=== PATIENT | male | born 1980 | race Caucasian/White ===

== ENCOUNTER 2019-04-10 10:54 | Inpatient (IN) ==
[2019-04-10] MEDS ORDERED: NS 1,000 ML IV ONE (11:34)
--- NOTE | 2019-04-10 11:39 | EKG Report ---
Test Performed on : 04/10/2019 11:18:18 AM Test Reason : syncope Blood Pressure : / mmHG Vent. Rate : 094 BPM Atrial Rate : 094 BPM P-R Int : 144 ms QRS Dur : 102 ms QT Int : 358 ms P-R-T Axes : 062 028 055 degrees QTc Int : 447 ms Normal sinus rhythm. Possible Left atrial enlargement Borderline ECG When compared with ECG of 03-MAY-2018 03:34, No significant change was found Unconfirmed Result
[2019-04-10 12:08] LABS: BASO# 0.03 X1000 (0.0-0.2); BASO% 0.2 % (0.0-0.8); EOS# 0.13 X1000 (0.0-0.7); EOS% 0.9 % (0.0-10.0); HEMATOCRIT 42.6 % (42.0-52.0); HEMOGLOBIN 14.6 g/dL (14.0-18.0); IMM GRAN# 0.05 X1000 (0.0-0.04); IMM GRAN% 0.3 % (0.0-0.5); LYMPH# 3.23 X1000 (1.2-3.4); LYMPH% 21.9 % (20.5-51.1); MCHC 34.3 g/dL (33-37); MCV 96.4 FL (81-99); MONO# 1.45 X1000 (0.11-0.59); MONO% 9.8 % (1.7-9.3); NEUT# 9.85 X1000 (1.4-6.5); NEUT% 66.9 % (42.2-75.2); PLT 262 X1000 (130-400); RBC 4.42 XMIL (4.7-6.1); RDW 13.4 % (11.5-14.5); WBC 14.74 X1000 (4.8-10.8)
--- NOTE | 2019-04-10 12:13 | Diag Imaging Result Doc PS360 ---
EXAM: CHEST-1 VIEW HISTORY: syncope TECHNIQUE: Chest single view COMPARISON: 02/15/2019 FINDINGS: The lungs are well expanded. The heart is not enlarged. The vessels are not distended. There are no infiltrates. No effusion identified. IMPRESSION: Negative exam. Electronically signed by Nelson Chung 04/10/2019 12:11 PM
--- NOTE | 2019-04-10 12:15 | Diag Imaging Result Doc PS360 ---
EXAM: CERVICAL SPINE COMPLETE 04/10/2019 HISTORY: syncope, neck pain TECHNIQUE: Cervical spine series with obliques six views COMMENT: There is reversal normal lordotic curvature of the lower cervical spine and there is narrowing of the anterior disc space at the C6-7 level with anterior osteophyte formation. There is also some anterior osteophyte formation at C5-6 and C7-T1. No prevertebral soft tissue swelling is present. There is apparently a somewhat transitional T1 with rudimentary rib on the right. Some uncovertebral arthropathy with encroachment on the intervertebral foramen at the C6-7 levels present on the left. There is no evidence of acute fracture or subluxation. IMPRESSION: Degenerative changes as described. No evidence of acute bony abnormality. Electronically signed by Rhys Ledezma 04/10/2019 12:13 PM
[2019-04-10 12:25] LABS: ALB/GLOB RATIO 1.3; ALBUMIN 4.3 g/dL (3.5-5.0); CALCIUM 8.7 mg/dL (8.8-10.2); MAGNESIUM 2.3 mg/dL (1.5-2.7); POTASSIUM 4.1 mmol/L (3.5-5.1); TOTAL BILIRUBIN 0.43 mg/dL (0.20-1.00); TOTAL PROTEIN 7.6 g/dL (6.3-8.3)
[2019-04-10 12:28] LABS: CREATININE 9.4 mg/dL (0.7-1.2)
[2019-04-10 12:44] LABS: URINE SOURCE CLEAN CATCH
[2019-04-10 12:48] LABS: BILIRUBIN URINE SMALL (NEGATIVE); BLOOD URINE TRACE (NEGATIVE); COLOR YELLOW; GLUCOSE URINE NEGATIVE (NEGATIVE); KETONE URINE NEGATIVE (NEGATIVE); LEUKOCYTES URINE TRACE (NEGATIVE); NITRITE URINE NEGATIVE (NEGATIVE); PH URINE 5.5; PROTEIN URINE 100 mg/dL (NEGATIVE); SP GRAVITY URINE 1.025; TURBIDITY URINE HAZY (CLEAR); UROBILINOGEN URINE 2 mg/dL (NORMAL)
[2019-04-10 13:06] LABS: UR EPITHELIAL CELLS <10 /HPF (<10); URINE BACTERIA NEGATIVE /HPF
[2019-04-10 13:07] LABS: UR AMPHETAMINES QUAL PRESUMPTIVE POSITIVE (NONE DETECT); UR BARBITUATES QUAL NONE DETECTED (NONE DETECT); UR BENZODIAZEPIN QUAL PRESUMPTIVE POSITIVE (NONE DETECT); UR CANNABINOIDS QUAL NONE DETECTED (NONE DETECT); UR COCAINE QUAL NONE DETECTED (NONE DETECT); UR METHADONE QUAL NONE DETECTED (NONE DETECT); UR OPIATES QUAL PRESUMPTIVE POSITIVE (NONE DETECT); UR OXYCODONE QUAL NONE DETECTED (NONE DETECT); UR PCP QUAL NONE DETECTED (NONE DETECT)
[2019-04-10 13:08] LABS: URINE YEAST NONE SEEN
[2019-04-10] MEDS: NORCO-10 PO PRN (16:10)
[2019-04-10] MEDS: NICODERM PATCH TD SCH (16:11)
[2019-04-10] MEDS: NS 1,000 ML IV SCH (17:23)
--- NOTE | 2019-04-10 18:26 | NEPHROLOGY CONSULTATION ---
DATE: 04/10/2019 REASON FOR CONSULTATION: Acute kidney injury. HISTORY OF PRESENT ILLNESS: Mr. Lopez is a 38-year-old white male with a history of hypertension and chronic pain syndrome. He is followed by Dr. Hernandez who prescribes lisinopril for his blood pressure as well as hydrocodone for management of his pain. His chart mentions diazepam, escitalopram, amlodipine as well. He does not mention these to me. He states that he is unemployed because of his neck pain and back pain. He states he has been working out in the yard on the mower and has been able to take his blood pressure medicine. He came to the hospital because he had symptoms of weakness and what he interpreted as near syncope. These symptoms were persistent so he sought attention. His initial evaluation found blood pressure 81/49, heart rate 99. After fluids his blood pressure improved to 126/73. Initial laboratory evaluation found creatinine 9.4. Historically, creatinine 1.2 on February 15 of this year. No voiding symptoms. No swelling, no shortness of breath, or chest discomfort. PAST MEDICAL HISTORY: As above. HOME MEDICATIONS: Reviewed. ALLERGIES: None. SOCIAL HISTORY: He lives with his mother. He continues to smoke. Occasional beer up to 2 a day. FAMILY HISTORY: Otherwise noncontributory. REVIEW OF SYSTEMS: Otherwise noncontributory. PHYSICAL EXAMINATION: No acute distress.Skin: Warm and dry. Eyes: Conjunctivae are pink. Neck: Neck veins are not distended. Heart: Regular. Lungs: Equal. No crackles. Abdomen: Soft, nontender. Bowel sounds present. Extremities: No edema, clubbing or cyanosis. IMPRESSION: Acute kidney injury, likely hemodynamic form of acute kidney injury secondary to poor glomerular autoregulation in the context of volume contraction. His JULIENNE inhibitor has been appropriately withheld and he is receiving normal saline. We will observe his kidney function over the next 24 hours. He will have a renal ultrasound. Check urine electrolytes. cc: MD Kevin Trevino MD
[2019-04-10 20:50] LABS: URINE SOURCE VOIDED
[2019-04-10 20:55] LABS: BILIRUBIN URINE NEGATIVE (NEGATIVE); BLOOD URINE SMALL (NEGATIVE); COLOR YELLOW; GLUCOSE URINE NEGATIVE (NEGATIVE); KETONE URINE NEGATIVE (NEGATIVE); LEUKOCYTES URINE NEGATIVE (NEGATIVE); NITRITE URINE NEGATIVE (NEGATIVE); PH URINE 5.5; PROTEIN URINE 50 mg/dL (NEGATIVE); SP GRAVITY URINE 1.017; TURBIDITY URINE CLEAR (CLEAR); UROBILINOGEN URINE NORMAL (NORMAL)
[2019-04-10 20:56] LABS: UR EPITHELIAL CELLS <10 /HPF (<10); URINE BACTERIA NEGATIVE /HPF; URINE RBC <10 /HPF (<10); URINE WBC <10 /HPF (<10)
[2019-04-10] MEDS: NORVASC PO SCH (21:00)
[2019-04-10] MEDS: VALIUM PO SCH (21:00)
[2019-04-10 21:08] LABS: UR CREAT RANDOM 186.4 mg/dL (14-26); UR PROT RANDOM 44.5 mg/dL
[2019-04-11] MEDS: NS 1,000 ML IV SCH ×4 (01:00→17:15)
[2019-04-11] MEDS: NORCO-10 PO PRN ×2 (07:32→15:52)
[2019-04-11 07:36] LABS: HEMATOCRIT 38.8 % (42.0-52.0); HEMOGLOBIN 13.2 g/dL (14.0-18.0); MCH 33.5 PG (27-31); MCV 98.5 FL (81-99); MPV 9.9 FL (7.4-10.4); RBC 3.94 XMIL (4.7-6.1); RDW 13.3 % (11.5-14.5); WBC 9.62 X1000 (4.8-10.8)
[2019-04-11 08:05] LABS: ALBUMIN 3.8 g/dL (3.5-5.0); CALCIUM 8.2 mg/dL (8.8-10.2); CREATININE 2.6 mg/dL (0.7-1.2); PHOSPHORUS 4.7 mg/dL (2.7-4.5); POTASSIUM 4.3 mmol/L (3.5-5.1)
[2019-04-11] MEDS: LEXAPRO PO SCH (08:24)
[2019-04-11] MEDS: NICODERM PATCH TD SCH (08:24)
[2019-04-11] MEDS: NORVASC PO SCH ×2 (08:24→20:51)
--- NOTE | 2019-04-11 08:34 | Diag Imaging Result Doc PS360 ---
EXAM: US RENAL 2 (RETROPER) COMPLETE 04/11/2019 HISTORY: decreased renal function TECHNIQUE: Renal ultrasound COMMENT: The kidneys are normal in echogenicity. There is no evidence of hydronephrosis. There are no definite masses. The study is somewhat suboptimal due to the patient's body habitus. The urinary bladder is not distended. The right kidney is 13.1 x 6.2 x 6.3 cm the left is 13 x 6.4 x 6.2 cm. IMPRESSION: No evidence of obstructive uropathy. Electronically signed by Rhys Ledezma 04/11/2019 8:31 AM
--- NOTE | 2019-04-11 08:56 | HISTORY AND PHYSICAL ---
HISTORY OF PRESENT ILLNESS: Mr. Lopez who is a 38-year-old white gentleman, a known case of hypertension, attention deficit disorder, chronic degenerative disk disease in the lumbar spine was brought to the emergency room because of severe dizziness and weakness. He was found to have dehydration and his creatinine was extremely elevated, hence he was admitted to the hospital with nephrology opinion and management. Mr. Lopez works too hard and sometimes does not take care of himself. He has is sometimes he does not comply with his medications. He has hypertension for several years. PAST SURGICAL HISTORY: Reveals history of 1 back surgery for lumbar spine degenerative disk disease. SOCIAL HISTORY: He has a smokes. He has used marijuana in the past. No other illegal drugs. He is on chronic narcotic medications by prescription. He drinks only socially. ALLERGIES: He is not allergic to any medication. MEDICINES: Include Norvasc, [place] 10, diazepam, Lexapro, NicoDerm patch. He also was taking lisinopril for hypertension, which we have stopped for the time being. REVIEW OF SYSTEMS: Other than dizziness, it is noncontributory. PHYSICAL EXAMINATION: VITAL SIGNS: Reveal temperature normal, pulse 71 per minute, respiratory rate 18 per minute, blood pressure was 103/48. HEENT: Head normocephalic. Pupils PERRLA. Fundus examination normal. NECK: Supple JVP normal ENT examination unremarkable. There is no evidence of lymphadenopathy, thyroid enlargement, pedal edema, calf tenderness, anemia, cyanosis or clubbing. Pedal pulses well felt. BREAST EXAM: Normal chest, normal inspection. LUNGS: Clear on auscultation. HEART: PMI in the normal position. Heart sounds normal. No murmur, gallop or rub noted. ABDOMEN: Nondistended hernial orifices normal. No guarding, rigidity, free fluid, masses, or organomegaly. Bowel sounds normal. RECTAL: Deferred. MANAGER OPERATIONS: Higher functions normal. Cranial nerves normal. Motor and sensory system examination unremarkable. Deep tendon reflexes normal. Plantars downgoing. Skull and spine examination normal for age. No cerebellar signs or signs of meningeal irritation local motor exam. SKIN: Unremarkable except for dehydration. CLINICAL IMPRESSION: 1. Dehydration. 2. Acute renal failure. 3. History of hypertension. 4. History of chronic narcotic use. 5. Attention deficit disorder. 6. He has degenerative disk disease in the lumbar spine. cc: Kevin Hernandez MD
[2019-04-11] MEDS ORDERED: NORCO-10 PO SCH (09:00)
[2019-04-11] MEDS ORDERED: DULCOLAX PR PRN (09:06)
--- NOTE | 2019-04-11 09:28 | PROGRESS NOTE ---
DATE: 04/11/2019 SUBJECTIVE: Mr. Lopez is feeling somewhat better today. He had a renal ultrasound, which does not show any obstructive uropathy. OBJECTIVE: Vital Signs: Stable. Blood pressure is 115/66. Abdomen: Soft, nontender. Lungs: Clear. LABORATORY DATA: The white count has come down from 14.74 to 9.62, hemoglobin is down to 13.2. Electrolytes are stable. BUN down from 49 to 41, but the creatinine is down from 9.4 to 2.6, which is a significant drop. PLAN: He is getting IV fluids, which we are going to continue, and continue with his current medications. He has severe constipation, which we are working on, and give him a suppository today. cc: Kevin Hernandez MD
--- NOTE | 2019-04-11 09:40 | NEPHROLOGY PROGRESS NOTE ---
DATE: 04/11/2019 SUBJECTIVE: The patient is sitting up on the side of the bed. He is waiting to go down for a renal ultrasound. He had been able to eat overnight. He is making excellent urine. OBJECTIVE: Vital Signs: Temperature 98.1 degrees, pulse 71, respiratory rate 19, blood pressure 121/47. Intake 2.2 L. Output 2.2 L. Physical Examination: General: This is a middle-aged gentleman sitting up on the side of the bed. He is awake and alert. He is in no acute distress. HEENT: Normocephalic, atraumatic. RD. Neck: Supple without JVD. Cardiovascular: Reveals regular rate and rhythm. Pulmonary: He has equal excursion. He has some rhonchi to the right posterior bases. Abdomen: Soft. Positive bowel sounds. : Voiding. Extremities: No clubbing, cyanosis, or edema. Integumentary: Skin is warm and dry. Lab Data: Pending. ASSESSMENT AND PLAN: 1. Acute kidney injury in the setting of impaired autoregulation. Patient has received intravenous fluids overnight. Urine output has improved significantly. He is to go for a renal ultrasound today. If it has no new findings, from a renal perspective, he should be able to be discharged at the discretion of the primary once we have labs back, if he has had any improvement. 2. Hypertension, controlled. Dictated by BLAINE Tinsley for Denny Herrera MD Face to face encounter, data reviewed, discussed with Rashad Sabillon on 04/11/19. I agree with the above assessment and plan of care. cc: MD Kevin Trevino MD [facility]
[2019-04-11] MEDS: VALIUM PO SCH (20:51)
[2019-04-12 07:51] LABS: HEMATOCRIT 39.9 % (42.0-52.0); HEMOGLOBIN 13.5 g/dL (14.0-18.0); MCH 32.9 PG (27-31); MCHC 33.8 g/dL (33-37); MCV 97.3 FL (81-99); MPV 9.8 FL (7.4-10.4); RBC 4.1 XMIL (4.7-6.1); WBC 7.88 X1000 (4.8-10.8)
[2019-04-12 07:59] VITALS: BP 149/81
[2019-04-12] MEDS: NORVASC PO SCH (08:17)
[2019-04-12] MEDS: NICODERM PATCH TD SCH (08:17)
[2019-04-12] MEDS: LEXAPRO PO SCH (08:17)
[2019-04-12] MEDS: NORCO-10 PO PRN (08:17)
[2019-04-12 08:34] LABS: AGAP 10; ALBUMIN 3.4 g/dL (3.5-5.0); BUN 17 mg/dL (8-22); CALCIUM 8.4 mg/dL (8.8-10.2); CHLORIDE 106 mmol/L (98-107); COSMO 277; CREATININE 0.7 mg/dL (0.7-1.2); ESTIMATED GFR > 60; GLUCOSE 100 mg/dL (70-104); POTASSIUM 4.6 mmol/L (3.5-5.1); SODIUM 138 mmol/L (136-145); TCO2 22 mmol/L (25-35)
--- NOTE | 2019-04-12 09:08 | PROGRESS NOTE ---
DATE: 04/12/2019 Mr. Lopez is doing better. He was getting IV fluid overnight and in last 24 hours, he had received a large amount of IV fluids and he had a good output. Urine culture is negative. BUN is down to 17, creatinine to 0.7 which is normal. We will discharge him as per suggestion by Dr. Herrera. cc: Kevin Hernandez MD
--- NOTE | 2019-04-12 12:49 | DISCHARGE SUMMARY ---
ADMISSION DATE: 04/10/2019 DISCHARGE DATE: 04/12/2019 Mr. Lopez is a 38-year-old white gentleman, was admitted with severe dizziness. He was hypotensive. He had acute renal failure. His creatinine went up to 9.4. BUN was also elevated. He also had dehydration. IV fluids were started and nephrology consult was made with Dr. Herrera. He suggested to continue the IV fluids. Renal ultrasound was performed. No obstructive uropathy was noted. Cervical spine x-rays were also done that reveal degenerative changes. COURSE IN THE HOSPITAL: He was placed on IV fluids. Nephrology consult was made and the creatinine started coming down from 9.4, it came down to 2.6 and today is completely normal. We are going to discharge him today. I will see him in the office and we are going to stop lisinopril. cc: Kevin Hernandez MD MTDD
--- NOTE | 2019-04-12 13:20 | NEPHROLOGY PROGRESS NOTE ---
DATE: 04/12/2019 SUBJECTIVE: Patient has no complaints. Hopes to go home. OBJECTIVE: Vital Signs: Temperature 97.5 degrees, pulse 83, respiratory rate 18, blood pressure 136/78. Intake 3.6 L. Output 3 L. General: Middle-aged gentleman sitting up in bed. Awake, alert, no acute distress. HEENT: Normocephalic, atraumatic. PERRL. Neck: Supple without JVD. Cardiovascular: Regular rate and rhythm. Pulmonary: Clear bilaterally. Abdomen: Soft, positive. Extremities: No clubbing, cyanosis, edema. Integumentary: Skin is warm and dry. LAB DATA: Creatinine 0.7. ASSESSMENT AND PLAN: Acute kidney injury in the setting of intravascular volume depletion and concurrent ACEI use. The patient does not have diabetes or heart disease, therefore he has no indication for an JULIENNE/ARB for his blood pressure control. His Norvasc has been increased and blood pressure is controlled. Would continue on this medication as an outpatient and if he develops proteinuria later or needed additional blood pressure medication at that time, we would consider that. Dictated by BLAINE Tinsley for Denny Herrera MD Face to face encounter, data reviewed, discussed with Rashad Sabillon on 04/12/19. I agree with the above assessment and plan of care. cc: MD Kevin Trevino MD [facility]
--- NOTE | 2019-04-29 16:15 | PROVIDER DOCUMENTATION ---
This chart was entered by Betina Roldan Scribe, acting as scribe for Basilio Kat MD. HPI-General Adult - General Chief Complaint: Neck Pain Stated Complaint: NECK /HEAD PAIN Time Seen by Provider: 04/10/19 11:16 Source: patient, RN/MD Allergies/Adverse Reactions: Patient Allergies Allergy/AdvReac Type Severity Reaction Status Date / Time No Known Allergies Allergy Verified 03/11/19 14:48 Home Medications: Home Medication List Medication Instructions Recorded Confirmed Last Taken Type Amlodipine [Norvasc] 5 mg PO BID 04/10/19 04/10/19 04/09/19 History Diazepam 10 mg PO HS 04/10/19 04/10/19 04/09/19 History Escitalopram Oxalate [Lexapro] 10 mg PO DAILY 04/10/19 04/10/19 Unknown History Hydrocodone/Acetaminophen [[place] 10 mg PO TID 04/10/19 04/10/19 04/09/19 History 10-325 Tablet] Nicotine Patch [Nicoderm Patch] 21 mg TD DAILY patch.[id number] 04/12/19 Unknown Rx - History of Present Illness -Gen Adult Nature of Presenting Problems: pt is a 38 yowm c/o wednesday night "didn't feel right," pt fell in floor, had syncopal episode and felt "eye flicker" but denies loc. pt was able to use restroom after fall and went and laid down. pt began "seeing spots" this am while in yard, had syncopal episode. pt also c/o nausea, chills, pain in bilat shoulders, spine, back of head, some fingertip numbness when texting, dry mouth and has had recent constipation. pt sts has had body pain prior to fall on wednesday. pt has hx of htn, took lisinopril 20mg this am, pt takes 1mg va lium/day. pt has hx of falls and ems was called to home prev, sts that his fsbs and blood pressure were fine. pt denies hx of seizures, cardiac problems, and blood clots. denies v/d, fever and sob. dr. kat reviewed pt records prior to entering room and pt failed to mention taking [place] 10. pt last had norcos 10 rx filled april 07. had valium rx filled march 22. pt pcp is dr. myers. Location of Pain/Injury: reports: head, neck, back Pain Radiation: reports: no radiation Quality of Pain: reports: none Severity: reports: mild Onset/Duration: reports: 2 days ago Timing: reports: still present Context/Activities at Onset: reports: light activity Review of Systems - Adult - REVIEW OF SYSTEMS - ADULT Constitutional: reports: see HPI, chills, other (malaise). denies: fever, night sweats, weight loss Eyes: reports: see HPI, other ("seeing spots" flickering"). denies: discharge, dry eyes, eye pain Ears, Nose, Mouth & Throat: reports: see HPI, other (dry mouth). denies: ear pain, hearing loss, tinnitus Cardiovascular: reports: no symptoms reported. denies: chest pain, heart murmur, palpitations Respiratory: reports: no symptoms reported. denies: pleurisy, shortness of breath, wheezing Gastrointestinal: reports: see HPI, constipation, nausea. denies: abdominal jayne n, diarrhea, rectal bleeding, vomiting Genitourinary: reports: no symptoms reported Musculoskeletal: reports: see HPI, back pain, joint pain (bilat shoulders), other (back of head). denies: bone pain, frequent leg cramps, joint swelling Integumentary: reports: no symptoms reported Neurological: reports: see HPI, loss of balance (pt has had recent falls last w as 8-24 but denies loc.), numbness (pt sts fingertips go numb when texting), syncope (x2 recently). denies: headache/migraines, seizure, slurred speech Psychiatric: reports: no symptoms reported Endocrine: reports: no symptoms reported Hematologic/Lymphatic: reports: no symptoms reported Allergic/Immunologic: reports: no symptoms reported All Other Systems: Reviewed and Negative Past History - Adult - PAST MEDICAL HISTORY-ADULT Review of Records: reports: Old Records Reviewed, Nursing Assessment Review, Medications Reviewed, Social history reviewed & non-contributory. Major Childhood Illnesses: reports: denies history Cardiovascular: reports: HTN Respiratory: reports: asthma Gastrointestinal: reports: denies history Obstetrical/Gynecological: reports: denies history Genitourinary: reports: denies history Musculoskeletal: reports: denies history Neurological: reports: denies history Endocrine/Immune: reports: denies history Other Conditions: reports: denies history - PRIOR SURGERIES/PROCEDURES Surgical/Procedure History: reports: reviewed, not pertinent, back/neck (lumbar fusion) - IMMUNIZATION STATUS Childhood Immunizations: See Nurse Assessment Flu Vaccine: See Nurse Assessment - FAMILY HISTORY Family History: reviewed, not pertinent - SOCIAL HISTORY Smoking: cigarettes, greater than 1 pack/day Provider spent 3-5 mins advising pt. on dangers of tobacco.: Discussed manners to quit use, and f/u contacts for add'l counseling. Substance Use: alcohol Alcohol Use Frequency: occasionally Physical Exam-General - PHYSICAL EXAM-ADULT Initial Vital Signs Reviewed: Yes - CONSTITUTIONAL General Appearance: appears well, alert, no apparent distress, obese. negative: lethargic, slow to respond, obtunded - EYES Eyes: PERRL/EOMI, pink conjunctivae. negative: conjuctival exudate, EOM palsy, photophobia, sunken eyes - HEAD, EARS, NOSE, MOUTH & THROAT HENMT: normocephalic/atraumatic, normal ENT inspection. negative: moist mucous membranes (dry mucous membranes), angioedema, frontal tenderness, maxillary tenderness - NECK Neck: non-tender, full range of motion, supple, normal inspection - RESPIRATORY Respiratory: chest non-tender, normal breath sounds, no pleuratic chest pain, no respiratory distress, no accessory muscle use, rhonchi. negative: lungs clear (faint), respiratory distress, decreased breath sounds, accessory muscle use - CARDIOVASCULAR Cardiovascular: normal peripheral pulses, regular rate, rhythm, no edema, no gallop, no JVD, no murmur, other (pt has low bp in er: 81/49 1107). negative: diastolic murmur, systolic murmur, gallop/S3, gallop/S4 - GASTROINTESTINAL (ABDOMEN) Abdominal Exam: normal bowel sounds, non tender, soft, no organomegaly, no pulsatile mass. negative: rigid, rebound, tenderness - LYMPHATIC Lymphatic: no adenopathy - MUSCULOSKELETAL Back Exam: normal inspection, no CVA tenderness, no vertebral tenderness. negative: decreased range of motion, muscle spasm, swelling Extremity: normal range of motion, non-tender, normal inspection Peripheral Pulses: radial (R): 2+, radial (L): 2+ - SKIN Integumentary: normal color, normal turgor, warm/dry. 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 Herrera who concurred w/ admission for emergency dialysis; hospitalist paged for admission.) - EKG 1 Time of EKG reading by physician:: 11:20 EKG Read and Signed by:: Basilio Kat EKG Interpretation (*Must complete 3 of following elements*): Abnormal (borderline) Rate: 94 (possible left atrial enlargement ) Rhythm: NSR [place]: normal QRS: normal HI Interval: normal ST Wave: normal - XRAY 1 XRAY: Bilateral XRAY Study: Chest Impression: Normal, See EMR Report (EXAM: CHEST-1 VIEW HISTORY: syncope TECHNIQUE: Chest single view COMPARISON: 02/15/2019 FINDINGS: The lungs are well expanded. The heart is not enlarged. The vessels are not distended. There are no infiltrates. No effusion identified. IMPRESSION: Negative exam. Electronically signed by Nelson Chung 04/10/2019 12:11 PM) 2 XRAY Study: C-Spine Impression: Abnormal, See EMR Report (EXAM: CERVICAL SPINE COMPLETE 04/10/2019 HISTORY: syncope, neck pain TECHNIQUE: Cervical spine series with obliques six views COMMENT: There is reversal normal lordotic curvature of the lower cer vical spine and there is narrowing of the anterior disc space at the C6-7 level with anterior osteophyte formation. There is also some anterior osteophyte formation at C5-6 and C7-T1. No prevertebral soft tissue swelling is present. There is apparently a somewhat transitional T1 with rudimentary rib on the right. Some uncovertebral arthropathy with encroachment on the intervertebral foramen at the C6-7 levels present on the left. There is no evidence of acute fracture or subluxation. IMPRESSION: Degenerative changes as described. No evidence of acute bony abnormality. Electronically signed by Rhys Ledezma 04/10/2019 12:13 PM) - CONSULTS/PCP/HOSPITALIST Notification #1 *Consult/PCP/Hospitalist*: Dr. Peña Time Discussed: 13:35 Consult Disposition: other (discussed pt, will page Dr. Myers) Departure - Departure Date of Disposition Decision: 04/10/19 Time of Disposition Decision: 15:00 DIAGNOSIS: Acute renal failure Disposition: ADMITTED INPATIENT 09 Certified Medical Emergency: Emergent Condition: Stable - Critical Care Note This patient required my direct & personal management of CC.: Yes Total Time (mins): 30 Critical Care Statement: This patient required my direct personal management to treat or rule out processes, the absence of which, could potentiallly result in sudden, clinically significant life or limb threatening deterioration. Attestation - Physician/ BIRGIT Attestation Patient care was provided by Advanced Practice Provider:: No The physician spent face to face time with patient:: Yes Advanced Practice Provider documentation review:: Supervising physician onsite and consulted in the evaluation and care of this patient. The physician did have a face to face encounter with the patient. This chart was documented by the indicated scribe, (Betina Roldan, Ting) and accurately reflects the services I performed and decisions made by me, Basilio Thakur MD, as attested by the provider's signature.
== END 2019-04-12 09:57 | disposition home or self-care (01) | DRG 684 ==
LOC: ED 10:54 → 1N 14:41
PROVIDERS: ADMIT Internal Medicine; ATTEND Internal Medicine

== ENCOUNTER 2019-07-26 07:02 | Inpatient (IN) ==
[2019-07-26] MEDS ORDERED: DILAUDID IV ONE (07:23)
[2019-07-26] MEDS ORDERED: NS 1,000 ML IV ONE (07:23)
[2019-07-26] MEDS ORDERED: ATIVAN IV ONE (07:23)
[2019-07-26] MEDS ORDERED: ZOFRAN IV ONE (07:23)
[2019-07-26] MEDS ORDERED: TORADOL IV ONE (07:25)
[2019-07-26] MEDS ORDERED: ROCEPHIN 1 GM in NS 50 ML IV ONE (07:26)
--- NOTE | 2019-07-26 07:45 | PROVIDER DOCUMENTATION ---
HPI-Male Problem - General Chief Complaint: Male Stated Complaint: TESTICLE PAIN Time Seen by Provider: 07/26/19 07:15 Source: patient Allergies/Adverse Reactions: Patient Allergies Allergy/AdvReac Type Severity Reaction Status Date / Time No Known Allergies Allergy Verified 07/26/19 07:24 Home Medications: Home Medication List Medication Instructions Recorded Confirmed Last Taken Type Amlodipine [Norvasc] 5 mg PO TID 04/10/19 07/26/19 07/25/19 History Diazepam 10 mg PO QHS 07/26/19 07/26/19 07/25/19 History Hydrocodone/Acetaminophen [[place] 1 ea PO TID 07/26/19 07/26/19 07/25/19 History 10-325 Tablet] - History of Present Illness-Male Nature of Presenting Problem: Patient continues to complain of severe left testicle pain with swelling. It has been going on for the last 6 days, getting progressively worse. Pain is constant. Seen 8 hours ago for same, came by ambulance at that time, went upstairs to mother's inpatient room, unable to urinate since last night. Had sono done, showing epididymitis and a hydrocele (read by [facility]). Has history of ARF to dehydration/rhabdomyolysis, but that cleared up. States pain radiates to left flank. There is nausea. He is diaphoretic and in distress. Location of Complaint: reports: scrotal (left testicle) Radiation: reports: left flank, groin Quality of Pain: reports: aching, throbbing Severity in ED: reports: severe Onset/Duration: reports: 6 days ago Timing: reports: still present, constant, changing over time, getting worse Context/Activities at Onset: reports: none Urinary Symptoms: reports: retention Last urinated? (time): 23:00 Sexual intercourse history: reports: Less Than 2 Months Ago Contraception: reports: none Associated Symptoms: reports: pain/swelling in testicle (severe) Associated Symptoms: reports: anxiety, back/neck pain, diaphoresis, loss of appetite, nausea Similar Symptoms Previously?: No Recently seen or treated by another doctor?: Yes (Here last night for same) Review of Systems - Adult - REVIEW OF SYSTEMS - ADULT Constitutional: reports: see HPI, chills Eyes: reports: no symptoms reported Ears, Nose, Mouth & Throat: reports: no symptoms reported Cardiovascular: reports: no symptoms reported Respiratory: reports: no symptoms reported Gastrointestinal: reports: see HPI, abdominal pain (left side), nausea. denies: hematemesis Genitourinary: reports: see HPI, flank pain, hesitency, urinary retention, urgency. denies: dysuria, discharge, frequency, frequent UTI's, hematuria, incontinence Musculoskeletal: reports: see HPI, back pain. denies: bone pain Integumentary: reports: no symptoms reported Neurological: reports: no symptoms reported Psychiatric: reports: no symptoms reported Endocrine: reports: no symptoms reported Hematologic/Lymphatic: reports: no symptoms reported Allergic/Immunologic: reports: no symptoms reported All Other Systems: Reviewed and Negative Past History - Adult - PAST MEDICAL HISTORY-ADULT Review of Records: reports: Old Records Reviewed (last night and prior admission for VENKAT. Labs reviewed, no UA done last night, WBC had 22L, creatinine normal), Nursing Assessment Review, Medications Reviewed, Social history reviewed & non- contributory. Major Childhood Illnesses: reports: denies history Cardiovascular: reports: denies history, HTN Respiratory: reports: denies history, asthma Gastrointestinal: reports: denies history Obstetrical/Gynecological: reports: denies history Genitourinary: reports: kidney disease Musculoskeletal: reports: denies history Neurological: reports: denies history Psychiatric: reports: anxiety Endocrine/Immune: reports: denies history Other Conditions: reports: denies history - PRIOR SURGERIES/PROCEDURES Surgical/Procedure History: reports: reviewed, not pertinent, back/neck (lumbar fusion) - IMMUNIZATION STATUS Childhood Immunizations: See Nurse Assessment Flu Vaccine: See Nurse Assessment - FAMILY HISTORY Family History: reviewed, not pertinent - SOCIAL HISTORY Smoking: cigarettes, greater than 1 pack/day Provider spent 3-5 mins advising pt. on dangers of tobacco.: Discussed manners to quit use, and f/u contacts for add'l counseling. Substance Use: other (Patient denies, by old records show OPIOID abuse as well as meth/amp and BZD) Alcohol Use Frequency: occasionally Number of drinks per typical drinking period:: 3-4 drinks Living Situation: family Physical Exam-General - PHYSICAL EXAM-ADULT Initial Vital Signs Reviewed: Yes (tachycardic, tachypneic) - CONSTITUTIONAL General Appearance: alert, severe distress, anxious - EYES Eyes: PERRL/EOMI, pink conjunctivae - HEAD, EARS, NOSE, MOUTH & THROAT HENMT: normocephalic/atraumatic, moist mucous membranes, pharynx normal - NECK Neck: non-tender, full range of motion, supple, normal inspection - RESPIRATORY Respiratory: chest non-tender, lungs clear, no pleuratic chest pain, no respiratory distress, no accessory muscle use, rhonchi (rare scattered, clears with cough), increased rate - CARDIOVASCULAR Cardiovascular: normal peripheral pulses, regular rate, rhythm, no edema, no gallop, no JVD, no murmur, tachycardia - GASTROINTESTINAL (ABDOMEN) Abdominal Exam: normal bowel sounds, soft, no organomegaly, no pulsatile mass, guarding, tenderness (left flank) - GENITOURINARY Male Genitalia: no hernia, circumcised, epididymal tenderness (severe), hydrocele, scrotal swelling (left sided with erythema), inguinal tenderness, testicular tenderness (severe left sided) - LYMPHATIC Lymphatic: no adenopathy - MUSCULOSKELETAL Back Exam: normal inspection, no vertebral tenderness, CVA tenderness (mild left sided) Extremity: normal range of motion, non-tender, normal gait, normal inspection, no pedal edema, no calf tenderness, normal capillary refill Peripheral Pulses: radial (R): 2+, radial (L): 2+ - SKIN Integumentary: normal turgor, diaphoresis, erythema (overlying scrotum) - NEUROLOGIC 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, grossly normal, no motor/sensory deficits - PSYCHIATRIC Psych/Mental Status: normal thought content, normal thought process, oriented x 3, anxious Progress - PLAN OF CARE/RESULTS Progress/Plan/Lab Results: Vital Signs - 8 hr 07/26/19 07:09 Temperature 99.0 F Pulse Rate 113 H Respiratory Rate 24 Blood Pressure 129/71 O2 Sat by Pulse Oximetry 99 Laboratory Results - last 24 hr 07/26/19 07/26/19 07/26/19 07:45 07:45 07:45 WBC 28.48 H RBC 5.58 Hgb 17.3 Hct 52.4 H MCV 93.9 MCH 31.0 MCHC 33.0 RDW Std Deviation 11.9 Plt Count 297 MPV 10.4 Immature Gran % (Auto) 0.4 Neut % (Auto) 86.0 H Lymph % (Auto) 5.3 L Mclennan % (Auto) 8.2 Eos % (Auto) 0.0 Baso % (Auto) 0.1 Immature Gran # (Auto) 0.12 H Neut # (Auto) 24.47 H Lymph # (Auto) 1.51 Mclennan # (Auto) 2.34 H Eos # (Auto) 0.01 Baso # (Auto) 0.03 PT INR Sodium 132 L Potassium 3.7 D Chloride 90 L Carbon Dioxide 25 Anion Gap 17 BUN 8 Creatinine 0.6 L Estimated GFR/1.73 m2 > 60 BUN/Creatinine Ratio 13 Glucose 97 Calculated Osmolality 263 Calcium 9.8 Phosphorus 3.0 Magnesium 1.4 L Total Bilirubin 1.59 H AST 38 H ALT 49 H Alkaline Phosphatase 203 H Creatine Kinase 55 Total Protein 7.6 Albumin 4.6 Globulin 3.0 Albumin/Globulin Ratio 1.5 Plasma Lactate Urine Source Urine Color Urine Turbidity Urine pH Ur Specific [place] Urine Protein Ur Glucose (Stick) Ur Ketones (Stick) Urine Blood Urine Nitrite Urine Bilirubin Urobilinogen Dipstick Urine Leukocytes Urine WBC (Auto) Urine RBC (Auto) U Epithel Cells (Auto) Urine Bacteria (Auto) Urine Crystals Small Round Cells Urine Casts Urine Yeast-like Cells Urine Opiates Screen Ur Oxycodone Screen Urine Methadone Screen Ur Barbiturates Screen Ur Phencyclidine Scrn Ur Amphetamines Screen U Benzodiazepines Scrn Urine Cocaine Screen U Cannabinoids Screen Plasma/Serum Ethyl Alc 07/26/19 07/26/19 07/26/19 07:45 07:45 08:15 WBC RBC Hgb Hct MCV MCH MCHC RDW Std Deviation Plt Count MPV Immature Gran % (Auto) Neut % (Auto) Lymph % (Auto) Mclennan % (Auto) Eos % (Auto) Baso % (Auto) Immature Gran # (Auto) Neut # (Auto) Lymph # (Auto) Mclennan # (Auto) Eos # (Auto) Baso # (Auto) PT 13.6 INR 1.03 Sodium Potassium Chloride Carbon Dioxide Anion Gap BUN Creatinine Estimated GFR/1.73 m2 BUN/Creatinine Ratio Glucose Calculated Osmolality Calcium Phosphorus Magnesium Total Bilirubin AST ALT Alkaline Phosphatase Creatine Kinase Total Protein Albumin Globulin Albumin/Globulin Ratio Plasma Lactate 0.8 Urine Source CATH Urine Color ORANGE Urine Turbidity HAZY Urine pH 6.0 Ur Specific [place] 1.033 Urine Protein 70 A Ur Glucose (Stick) NEGATIVE Ur Ketones (Stick) 20 A Urine Blood MODERATE A Urine Nitrite NEGATIVE Urine Bilirubin SMALL A Urobilinogen Dipstick 8 A Urine Leukocytes LARGE A Urine WBC (Auto) TNTC A Urine RBC (Auto) 10-20 A U Epithel Cells (Auto) <10 Urine Bacteria (Auto) NEGATIVE Urine Crystals Not Reportable Small Round Cells Not Reportable Urine Casts Not Reportable Urine Yeast-like Cells NONE SEEN Urine Opiates Screen Ur Oxycodone Screen Urine Methadone Screen Ur Barbiturates Screen Ur Phencyclidine Scrn Ur Amphetamines Screen U Benzodiazepines Scrn Urine Cocaine Screen U Cannabinoids Screen Plasma/Serum Ethyl Alc 07/26/19 08:15 WBC RBC Hgb Hct MCV MCH MCHC RDW Std Deviation Plt Count MPV Immature Gran % (Auto) Neut % (Auto) Lymph % (Auto) Mclennan % (Auto) Eos % (Auto) Baso % (Auto) Immature Gran # (Auto) Neut # (Auto) Lymph # (Auto) Mclennan # (Auto) Eos # (Auto) Baso # (Auto) PT INR Sodium Potassium Chloride Carbon Dioxide Anion Gap BUN Creatinine Estimated GFR/1.73 m2 BUN/Creatinine Ratio Glucose Calculated Osmolality Calcium Phosphorus Magnesium Total Bilirubin AST ALT Alkaline Phosphatase Creatine Kinase Total Protein Albumin Globulin Albumin/Globulin Ratio Plasma Lactate Urine Source Urine Color Urine Turbidity Urine pH Ur Specific [place] Urine Protein Ur Glucose (Stick) Ur Ketones (Stick) Urine Blood Urine Nitrite Urine Bilirubin Urobilinogen Dipstick Urine Leukocytes Urine WBC (Auto) Urine RBC (Auto) U Epithel Cells (Auto) Urine Bacteria (Auto) Urine Crystals Small Round Cells Urine Casts Urine Yeast-like Cells Urine Opiates Screen PRESUMPTIVE POS A Ur Oxycodone Screen PRESUMPTIVE POS A Urine Methadone Screen NONE DETECTED Ur Barbiturates Screen NONE DETECTED Ur Phencyclidine Scrn NONE DETECTED Ur Amphetamines Screen PRESUMPTIVE POS A U Benzodiazepines Scrn PRESUMPTIVE POS A Urine Cocaine Screen NONE DETECTED U Cannabinoids Screen NONE DETECTED Plasma/Serum Ethyl Alc Orders Category Date Time Status Humphrey Cath Insertion ORDERED Care 07/26/19 07:21 Active Saline Loc NOW Care 07/26/19 07:21 Active NPO Diet 07/26/19 07:[address] ABD/PELVIS W/IV CONT ONLY [CT] Stat Exams 07/26/19 07:59 Completed US SCROTUM [US] Stat Exams 07/26/19 07:23 Completed ALCOHOL BLOOD Stat Lab 07/26/19 07:45 Completed BLOOD CULTURE [BLDCUL] Stat Lab 07/26/19 07:45 Results C REACTIVE PROT QUANT [CHEM] Stat Lab 07/26/19 07:45 Results CBC WITH ELECTRONIC DIFF [HEME] Stat Lab 07/26/19 07:45 Completed CK TOTAL [CHEM] Stat Lab 07/26/19 07:45 Results COMPREHENSIVE METABOLIC PANEL [CHEM] Stat Lab 07/26/19 07:45 Results LACTATE, PLASMA [CHEM] Stat Lab 07/26/19 07:45 Completed MAGNESIUM [CHEM] Stat Lab 07/26/19 07:45 Results PROTIME WITH INR [COAG] Stat Lab 07/26/19 07:45 Completed URINALYSIS W/POSS RFLX CULT [URINALYSIS] Stat Lab 07/26/19 08:15 Completed URINE CULTURE [RM] Routine Lab 07/26/19 09:16 Ordered URINE DRUG SCREEN MEDTOX Stat Lab 07/26/19 08:15 Completed URINE MANUAL MICROSCOPIC [URINALYSIS] Stat Lab 07/26/19 08:15 Completed phos [PHOSPHORUS] [CHEM] Stat Lab 07/26/19 07:45 Results 0.9% Sodium Chloride Inj [Ns] 1,000 ml Med 07/26/19 07:23 Discontinued IV 999 mls/hr CefTRIAXONE [Rocephin] 1 gm Med 07/26/19 07:26 Discontinued 0.9% Sodium Chloride Inj [Ns] 50 ml IV NOW Hydromorphone [Dilaudid] Med 07/26/19 07:23 Discontinued 1 mg IV NOW ONE Ketorolac [Toradol] Med 07/26/19 07:25 Discontinued 15 mg IV NOW ONE Lorazepam [Ativan] Med 07/26/19 07:23 Discontinued 1 mg IV NOW ONE Ondansetron [Zofran] Med 07/26/19 07:23 Discontinued 4 mg IV NOW ONE Piperacillin/Tazobactam [Zosyn] 4.5 gm Med 07/26/19 07:55 Discontinued 0.9% Sodium Chloride Inj [Ns] 100 ml IV NOW Vancomycin 1 gm IV Now Med 07/26/19 09:46 Ordered Vancomycin 1 gm/Ns 1 gm in 250 ml IV NOW Result Diagrams: 07/26/19 07:45 07/26/19 07:45 - REASSESSMENT Reassessment #1 Time Reassessed: 09:50 Status: improving (much better after IVF, pain meds. Given Vanco. OLD CHART REVIEWED) - CT/MRI 1 CT Study: Abdomen Impression: Abnormal, See EMR Report ( EXAM: CT ABD/PELVIS W/IV CONT ONLY 07/16 HISTORY: severe left testicle pain with sepsis TECHNIQUE: This exam was performed using automated exposure control, adjustment of mA or kV according to patient size, and/or use of iterative reconstruction technique. COMMENT: There are no previous studies available for comparison. There is no evidence of acute disease in the visualized portion of the chest. The spleen and adrenal glands are not enlarged. The pancreas is normal in appearance. There are no apparent gallstones. The liver is unremarkable. The kidneys are without evidence of hydronephrosis or stones. There is a cyst in the lower pole of the left kidney measuring 14 mm in diameter. There is a small splenule near the splenic hilus. There is no evidence of bowel obstruction. The aorta is not distended. There is some periaortic adenopathy below the renal pedicle on the left. The largest node measures 13 mm in diameter. Pelvis: The appendix is normal in appearance. There is some fluid in the cecum. The urinary bladder is not distended and there is a Humphrey catheter in place. Some gas is present in the bladder. There is diverticulosis in the sigmoid colon without evidence of acute diverticulitis. There is fluid and inflammatory change present in the left inguinal canal and hemiscrotum. This is consistent with the findings of epididymitis on the recent scrotal ultrasound. There is marked skin thickening in the scrotum. There are no inflammatory changes or abnormal fluid collections present in the perineum. There is a bone island in the ischium on the left. There is another near the acetabulum. There are degenerative disc changes in the lumbar spine and there has been previous laminectomy and fusion at L5-S1. No acute bony abnormalities are present. IMPRESSION: Probable reactive left periaortic adenopathy due to left epididymitis. The possibility of a scrotal empyema cannot be excluded. Otherwise no evidence of acute disease in the abdomen and pelvis. Electronically signed by Rhys Ledezma 07/26/2019 9:09 AM 07/26/19 0909 Interpreting Physician: Rhys Ledezma MD Dictated Date/Time: 07/26/19 0902 cc: River Sprague MD; Kevin Hernandez MD) - ULTRASOUND (By Radiology) 1 US Study: Scrotum Impression: Abnormal ( EXAM: US SCROTUM INDICATION: severe left testicle pain, recurrent, diaphoresis, TECHNIQUE: COMPARISON: Scrotal ultrasound performed today about four hours ago. FINDINGS: Both testicles remain normal in echotexture and both testicles exhibit normal Doppler flow. The testicles are approximately stable in size given slight differences in measurement planes. The left epididymis remains enlarged and hyperemic as compared to the left suggesting epididymitis. There is a stable complex hydrocele with internal septations on the left. There is stable overlying scrotal skin thickening. IMPRESSION: Findings suggestive of left epididymitis with an associated complex hydrocele. Both testicles exhibit normal Doppler flow. Electronically signed by Sva Roldan 07/26/2019 8:59 AM 07/26/19 0859 Interpreting Physician: Sav Roldan MD Dictated Date/Time: 07/26/19 0856 cc: River Sprague MD; Kevin Hernandez MD), See EMR Report - CONSULTS/PCP/HOSPITALIST Notification #1 *Consult/PCP/Hospitalist*: kyle paged [phone] Time Discussed: 09:49 Consult Disposition: Admit (to PCP, araceli casas) #2 Consult: lucia Time Discussed: 09:49 Consult Disposition: Will see in ED, Admit Departure - Departure Date of Disposition Decision: 07/26/19 Time of Disposition Decision: 09:50 DIAGNOSIS: Epididymitis with abscess, Cellulitis, scrotum, Tobacco use disorder Sepsis Qualifiers: Sepsis type: sepsis due to unspecified organism Sepsis acute organ dysfunction status: with acute organ dysfunction Severe sepsis acute organ dysfunction type: unspecified Severe sepsis shock status: without septic shock Qualified Code(s): A41.9 - Sepsis, unspecified organism; R65.20 - Severe sepsis without septic shock Disposition: ADMITTED INPATIENT 09 Certified Medical Emergency: Emergent Condition: Fair Referrals and Follow-Ups: Kevin Hernandez MD [Primary Care Provider] - - Critical Care Note This patient required my direct & personal management of CC.: Yes Total Time (mins): 45 (management of sepsis, mult consults, mult trips to bedside) Critical Care Statement: This patient required my direct personal management to treat or rule out processes, the absence of which, could potentiallly result in sudden, clinically significant life or limb threatening deterioration. Attestation - Physician/ BIRGIT Attestation Patient care was provided by Advanced Practice Provider:: No The physician spent face to face time with patient:: Yes Advanced Practice Provider documentation review:: Supervising physician onsite and consulted in the evaluation and care of this patient. The physician did have a face to face encounter with the patient.
[2019-07-26] MEDS ORDERED: ZOSYN 4.5 GM in NS 100 ML IV ONE (07:55)
[2019-07-26 08:29] LABS: BASO# 0.03 X1000 (0.0-0.2); BASO% 0.1 % (0.0-0.8); EOS# 0.01 X1000 (0.0-0.7); HEMATOCRIT 52.4 % (42.0-52.0); HEMOGLOBIN 17.3 g/dL (14.0-18.0); IMM GRAN# 0.12 X1000 (0.0-0.04); IMM GRAN% 0.4 % (0.0-0.5); LYMPH# 1.51 X1000 (1.2-3.4); LYMPH% 5.3 % (20.5-51.1); MCV 93.9 FL (81-99); MONO# 2.34 X1000 (0.11-0.59); MONO% 8.2 % (1.7-9.3); MPV 10.4 FL (7.4-10.4); NEUT# 24.47 X1000 (1.4-6.5); PLT 297 X1000 (130-400); RBC 5.58 XMIL (4.7-6.1); RDW 11.9 % (11.5-14.5); WBC 28.48 X1000 (4.8-10.8)
[2019-07-26 08:33] LABS: URINE SOURCE CATH
[2019-07-26 08:51] LABS: AGAP 17; ALB/GLOB RATIO 1.5; ALBUMIN 4.6 g/dL (3.5-5.0); ALKALINE PHOSPHATASE 203 U/L (32-122); BUN 8 mg/dL (8-22); CALCIUM 9.8 mg/dL (8.8-10.2); CHLORIDE 90 mmol/L (98-107); CK TOTAL 55 U/L (24-204); COSMO 263; CREATININE 0.6 mg/dL (0.7-1.2); ESTIMATED GFR > 60; GLUCOSE 97 mg/dL (70-104); GOT 38 U/L (10-34); GPT 49 U/L (10-44); MAGNESIUM 1.4 mg/dL (1.5-2.7); POTASSIUM 3.7 mmol/L (3.5-5.1); SODIUM 132 mmol/L (136-145); TCO2 25 mmol/L (25-35); TOTAL BILIRUBIN 1.59 mg/dL (0.20-1.00); TOTAL PROTEIN 7.6 g/dL (6.3-8.3)
--- NOTE | 2019-07-26 09:02 | Diag Imaging Result Doc PS360 ---
EXAM: US SCROTUM INDICATION: severe left testicle pain, recurrent, diaphoresis, TECHNIQUE: COMPARISON: Scrotal ultrasound performed today about four hours ago. FINDINGS: Both testicles remain normal in echotexture and both testicles exhibit normal Doppler flow. The testicles are approximately stable in size given slight differences in measurement planes. The left epididymis remains enlarged and hyperemic as compared to the left suggesting epididymitis. There is a stable complex hydrocele with internal septations on the left. There is stable overlying scrotal skin thickening. IMPRESSION: Findings suggestive of left epididymitis with an associated complex hydrocele. Both testicles exhibit normal Doppler flow. Electronically signed by Sav Roldan 07/26/2019 8:59 AM
[2019-07-26 09:03] LABS: BILIRUBIN URINE SMALL (NEGATIVE); BLOOD URINE MODERATE (NEGATIVE); COLOR ORANGE; GLUCOSE URINE NEGATIVE (NEGATIVE); KETONE URINE 20 mg/dL (NEGATIVE); LEUKOCYTES URINE LARGE (NEGATIVE); NITRITE URINE NEGATIVE (NEGATIVE); PROTEIN URINE 70 mg/dL (NEGATIVE); SP GRAVITY URINE 1.033; TURBIDITY URINE HAZY (CLEAR); UROBILINOGEN URINE 8 mg/dL (NORMAL)
[2019-07-26 09:09] LABS: UR EPITHELIAL CELLS <10 /HPF (<10); URINE BACTERIA NEGATIVE /HPF; URINE WBC TNTC /HPF (<10)
[2019-07-26 09:10] LABS: UR AMPHETAMINES MT PRESUMPTIVE POS (NONE DETECT); UR BARBITUATES MT NONE DETECTED (NONE DETECT); UR BENZODIAZ MT PRESUMPTIVE POS (NONE DETECT); UR CANNABIS MEDTOX NONE DETECTED (NONE DETECT); UR COCAINE MT NONE DETECTED (NONE DETECT); UR OPIATES MT PRESUMPTIVE POS (NONE DETECT); UR OXYCODONE MEDTOX PRESUMPTIVE POS (NONE DETECT); UR PCP MEDTOX NONE DETECTED (NONE DETECT)
[2019-07-26 09:11] LABS: UR METHADONE MEDTOX NONE DETECTED (NONE DETECT)
--- NOTE | 2019-07-26 09:11 | Diag Imaging Result Doc PS360 ---
EXAM: CT ABD/PELVIS W/IV CONT ONLY 07/26/2019 HISTORY: severe left testicle pain with sepsis TECHNIQUE: This exam was performed using automated exposure control, adjustment of mA or kV according to patient size, and/or use of iterative reconstruction technique. COMMENT: There are no previous studies available for comparison. There is no evidence of acute disease in the visualized portion of the chest. The spleen and adrenal glands are not enlarged. The pancreas is normal in appearance. There are no apparent gallstones. The liver is unremarkable. The kidneys are without evidence of hydronephrosis or stones. There is a cyst in the lower pole of the left kidney measuring 14 mm in diameter. There is a small splenule near the splenic hilus. There is no evidence of bowel obstruction. The aorta is not distended. There is some periaortic adenopathy below the renal pedicle on the left. The largest node measures 13 mm in diameter. Pelvis: The appendix is normal in appearance. There is some fluid in the cecum. The urinary bladder is not distended and there is a Humphrey catheter in place. Some gas is present in the bladder. There is diverticulosis in the sigmoid colon without evidence of acute diverticulitis. There is fluid and inflammatory change present in the left inguinal canal and hemiscrotum. This is consistent with the findings of epididymitis on the recent scrotal ultrasound. There is marked skin thickening in the scrotum. There are no inflammatory changes or abnormal fluid collections present in the perineum. There is a bone island in the ischium on the left. There is another near the acetabulum. There are degenerative disc changes in the lumbar spine and there has been previous laminectomy and fusion at L5-S1. No acute bony abnormalities are present. IMPRESSION: Probable reactive left periaortic adenopathy due to left epididymitis. The possibility of a scrotal empyema cannot be excluded. Otherwise no evidence of acute disease in the abdomen and pelvis. Electronically signed by Rhys Ledezma 07/26/2019 9:09 AM
[2019-07-26 09:13] LABS: URINE YEAST NONE SEEN
[2019-07-26 09:43] LABS: INR 1.03; PROTIME 13.6 Seconds (11.0-16.0)
[2019-07-26] MEDS ORDERED: VANCOMYCIN 1 GM/NS 1 GM/250 ML IVPB IV ONE (09:46)
[2019-07-26] MEDS ORDERED: TYLENOL PO PRN (09:55)
[2019-07-26] MEDS ORDERED: ZOFRAN IV PRN (09:55)
[2019-07-26 10:09] LABS: C REACTIVE PROT QUANT 219.09 mg/L (0.00-5.00)
[2019-07-26] MEDS: MORPHINE IV PRN ×3 (13:14→23:36)
[2019-07-26] MEDS ORDERED: VANCOMYCIN IV PER PHARMACY MISC SCH (17:45)
[2019-07-26] MEDS: NICODERM PATCH TD SCH (17:46)
[2019-07-26] MEDS ORDERED: LEVAQUIN 750 MG/D5W 750 MG/150 ML IVPB IV SCH (18:00)
[2019-07-26] MEDS: VANCOMYCIN 2,000 MG in NS 500 ML IV SCH (19:31)
--- NOTE | 2019-07-26 20:51 | HISTORY AND PHYSICAL ---
HISTORY OF PRESENT ILLNESS: Mr. Lopez, who is a 38-year-old, white gentleman, comes to the emergency room with severe pain in the scrotal area. He said he had a swelling which started last Wednesday, that was about 5 days ago, in the left side of the scrotum. It was very painful. It swelled up again. He continued to work. It swelled up and almost went to double the size. The pain was very severe, and this morning, he says the pain was so severe that he had to come by ambulance. He has history of acute renal shutdown at one point, however, no other significant urologic history. No history of stones. He had a cyst removed from the scrotum according to him and had back surgery where he had fusion performed. Mr. Lopez has attention deficit disorder. He has chronic severe degenerative disk disease in the lumbar spine, has hypertension, severe anxiety. 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 He smokes 1/2 to 1 pack of cigarettes per day for a long time. Drinks only socially. Does not use any illegal drugs. REVIEW OF SYSTEMS: Actually noncontributory, except for severe pain and swelling in the left scrotal bag. MEDICATIONS: Include hydrocodone 10 four times a day, Valium at bedtime, and he takes Norvasc 5 mg daily for hypertension. He used to take some Adderall, which he has not been taking for a long time. PHYSICAL EXAMINATION: The patient is alert, oriented. VITAL SIGNS: Temperature is normal, pulse 87 per minute, respiratory rate 18 per minute, blood pressure 134/66. HEAD: Normocephalic. Pupils PERRLA. Fundus examination not done. NECK: Supple. JVP normal. ENT: Unremarkable. There is no evidence of lymphadenopathy, thyroid enlargement, pedal edema, calf tenderness, edema, cyanosis, or clubbing. Pedal pulses well felt. CHEST: Normal to inspection. LUNGS: Clear on auscultation. PMI in the normal position. HEART: Sounds normal. No murmur, gallop, or rub noted. ABDOMEN: Nondistended. Hernial orifices normal. He has swelling in the scrotum more pertaining to the left side, with some possible hydrocele, and the left testicle is very much enlarged and very tender. No guarding, rigidity, free fluid, masses, or organomegaly. Bowel sounds normal. RECTAL: Deferred. CENTRAL NERVOUS SYSTEM: Higher functions normal. Cranial nerves normal. Motor and sensory system examination unremarkable. Deep tendon reflexes normal. SLR positive. SKULL AND SPINE: Painful movements of the lumbar spine. No cerebellar signs or signs of meningeal irritation on local motor exam. SKIN: Unremarkable. CLINICAL IMPRESSION: Severe epididymoorchitis with hydrocele on the left side. PLAN: Get a Urology consult, and continue IV Levaquin and possibly vancomycin. cc: Kevin Hernandez MD
[2019-07-26] MEDS: VALIUM PO SCH (21:39)
[2019-07-26] MEDS: NORCO-10 PO SCH (21:39)
[2019-07-26] MEDS: NORVASC PO SCH (21:42)
[2019-07-26] MEDS ORDERED: DITROPAN PO STA (21:50)
--- NOTE | 2019-07-27 05:13 | CONSULTATION ---
DATE OF CONSULTATION: 07/26/2019 CHIEF COMPLAINT: Left scrotal swelling and pain. HISTORY OF PRESENT ILLNESS: Mr. Lopez is a 38-year-old with hypertension, ADHD, and chronic back pain, who presents in consultation regarding left scrotal pain. The patient states since last Wednesday, he has been having pain in the left scrotum, it started swelling and progressively gotten worse. The patient was able to initially still work. However, this progressively become more difficult and he presented to the emergency room last night by ambulance with scrotal pain. He was evaluated with a scrotal ultrasound which showed significant episode of left epididymitis. He was discharged with antibiotics. However, his pain worsened and he re-presented to the emergency room early this morning. The patient was re-evaluated with a repeat scrotal ultrasound and a CT scan which showed significant epididymitis with possible loculated hydrocele. The patient's white blood cell count yesterday was 23,000 and was 28,[address] scan showed epididymitis as well as possible periaortic lymphadenopathy. Urology was consulted for further recommendations. The patient has not been seen by Urology previously. He feels that he may have a fever and chills. He received Zosyn and Vancomycin in the ED. The patient is noted to have a prior episode of acute kidney injury associated with possible rhabdomyolysis versus lisinopril. PAST MEDICAL HISTORY: 1. ADHD. 2. Hypertension. 3. 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 4. Anxiety. PAST SURGICAL HISTORY: 1. Cyst removal from testicle. 2. Back surgery. ALLERGIES: No known drug allergies. MEDICATIONS: 1. Hydrocodone 10 mg 4 times daily. 2. Valium 3. Norvasc 5 mg. 4. Adderall. FAMILY HISTORY: Denies family history of malignancy. SOCIAL HISTORY: The patient is a daily smoker. Drinks socially and does not use illicit drugs. The patient works. REVIEW OF SYSTEMS: Twelve-point review of systems performed with all pertinent positives and negatives in the HPI. PHYSICAL EXAMINATION: Vital Signs: Temperature 98 degrees, heart rate 69, blood pressure 132/74, oxygen saturation 98% on room air. General: No acute distress. Resting comfortably in bed. Alert and oriented x3. HEENT: Normocephalic, atraumatic. Pupils equal, round, reactive to light. Poor dentition. Neck: Trachea midline with no palpable masses. Respiratory: Good respiratory effort without audible wheezing or rales. Cardiovascular: Regular rate and rhythm. Abdomen: Soft, nontender, nondistended. No palpable mass or hepatosplenomegaly. Genitourinary: Normal phallus with normal orthotopic meatus. Urethral catheter in place with clear, yellow urinary output. Left testicle and hemiscrotum is quite swollen and indurated. No changes in skin are seen. There was no crepitus palpated. I was able to palpate the entirety of the testicle, slight irregularity with indurated left epididymis. No palpable fluid collections are seen within the scrotum. Right testicle is nontender to palpation. Neurologic: Gross motor and sensory intact. Skin: No skin lesions or rashes. Musculoskeletal: Moving all extremities. LABS: White blood cell count 28.5, hemoglobin 17.3, hematocrit 52.4, platelets 297,000. Sodium 132, potassium 3.7, chloride 90, bicarb 25, BUN 8, creatinine 0.6. Total bilirubin 1.59, AST 38, ALT 49, and alkaline phosphatase 203. C-reactive protein 219. Plasma lactate 0.8. IMAGING: Scrotal ultrasound images reviewed, which shows induration of the left epididymis with hypervascularity. Normal blood supply to both testicles. A slightly complex left hydrocele with septations. No obvious gas is seen within the scrotal wall or hydrocele sac. CT abdomen and pelvis shows similar evidence of left epididymitis with inflammatory changes within the inguinal canal. A small amount of fluid is seen around the testicle. There is periaortic lymphadenopathy. ASSESSMENT AND PLAN: Mr. Lopez is a 38-year-old who presented to the emergency room for the 2nd time today complaining of scrotal swelling on the left side and scrotal pain. The patient has had 2 scrotal ultrasounds over the last 10 hours showing normal blood supply to the testicle with evidence of epididymitis. A CT scan was performed today which showed some lymphadenopathy. On exam, the patient has a very indurated left hemiscrotum with no significant skin changes. No palpable fluid collections were seen within the scrotum on exam. No obvious fluctuance is seen within the scrotum or crepitus palpated. The patient's exam seems to be improving. He states his pain has been better controlled. I think patient has significant episode of epididymitis and would benefit from continued IV antibiotics. The patient had indwelling catheter inserted due to urinary retention and this has helped with his pain. I think patient may have epididymitis as well as a urinary tract infection. Urinalysis on presentation showed moderate amount of blood and leukocytes, this could just be inflammatory in origin. Discussed with him that he had a small hydrocele that is visualized. However, I am not sure if draining this would actually make a difference with his infection. I think ultimately IV antibiotics and continued pain control. Would keep on vancomycin and either Zosyn or Levaquin. Would send urine and blood cultures and follow with culture specific antibiotics. Could use anti-inflammatories to help the pain and inflammation. The patient has a history of prior acute kidney injury with elevated creatinine. We will continue to monitor renal function and white blood cell count while on antibiotics. If clinically worsens, would have to consider drainage or consideration for orchiectomy. Vital signs while inpatient are stable, the patient has remained afebrile with stable heart rate and blood pressures. We will continue to monitor from a urologic standpoint. Please call with questions or concerns. cc: MD Kevin Bob MD [facility]
[2019-07-27] MEDS ORDERED: DIPRIVAN 1% ONE (07:36)
[2019-07-27] MEDS ORDERED: XYLOCAINE-MPF 2% ONE (07:40)
[2019-07-27] MEDS ORDERED: FENTANYL ONE (08:03)
[2019-07-27] MEDS ORDERED: NEOSPORIN G.U. IRRIGANT ONE (08:03)
[2019-07-27] MEDS ORDERED: VERSED ONE (08:04)
[2019-07-27] MEDS ORDERED: DECADRON ONE (08:11)
[2019-07-27] MEDS ORDERED: ZOFRAN ONE (08:11)
[2019-07-27] MEDS ORDERED: DILAUDID ONE (08:33)
[2019-07-27] MEDS ORDERED: LR 500 ML ONE (09:10)
[2019-07-27] MEDS ORDERED: NORCO-10 ONE (09:31)
[2019-07-27] MEDS: NORCO-10 PO SCH ×4 (09:34→20:44)
--- NOTE | 2019-07-27 09:45 | PROGRESS NOTE ---
DATE: 07/27/2019 SUBJECTIVE: Patient was admitted overnight for scrotal pain and scrotal swelling. The patient had worsening of his pain overnight after improving yesterday in the emergency room. He had a low- grade temperature 99.8 degrees, he denies any dysuria or hematuria. The patient states his catheter is not draining as well. He states that he has to push on his abdomen to get all the urine out of the catheter. However, 2 L is recorded from the catheter overnight. Heart rate is 84, blood pressure 141/72. OBJECTIVE: No acute distress. Resting comfortably in bed. Alert and oriented x3. Respiratory: Good respiratory effort without audible wheezing or rales. Abdomen: Soft, nontender, nondistended. : No suprapubic tenderness. Urethral catheter in place draining concentrated yellow urine. The patient has significant left scrotal edema with the right testicle palpated and nontender. A small amount of fluid is present here. A large amount of swelling is seen on the left side, seems to be slightly worse than yesterday. The scrotum is firm, slightly warm. No palpable fluctuance or crepitus felt. LABS: No labs returned as of yet this morning. ASSESSMENT AND PLAN: Mr. Lopez is a 38-year-old who presented for scrotal swelling. The patient has a history of hypertension, attention deficit disorder, chronic pain due to back pain and prior history of acute kidney injury. He was seen in consultation regarding left orchitis and epididymitis. The patient's exam seems to have worsened overnight. I think there is some infection building up around the testicle itself with likely abscess. In talking with him, I recommended performing scrotal drainage with incision and drainage of scrotal abscess. We will take cultures at that time. I will try to irrigate the wound. I discussed risks including bleeding, worsening infection, damage to surrounding structures and possible need for orchiectomy. After thorough discussion of risks and benefits, patient elected to proceed. We will take him to the operating room later this morning for incision and drainage of scrotal abscess. We will obtain labs this morning. cc: MD Kevin Bob MD [facility]
[2019-07-27 09:56] LABS: BASO# 0.03 X1000 (0.0-0.2); BASO% 0.1 % (0.0-0.8); EOS# 0.03 X1000 (0.0-0.7); EOS% 0.1 % (0.0-10.0); HEMATOCRIT 45.3 % (42.0-52.0); HEMOGLOBIN 14.8 g/dL (14.0-18.0); IMM GRAN# 0.16 X1000 (0.0-0.04); IMM GRAN% 0.5 % (0.0-0.5); LYMPH% 3.9 % (20.5-51.1); MCH 31.1 PG (27-31); MCHC 32.7 g/dL (33-37); MCV 95.2 FL (81-99); MONO# 2.27 X1000 (0.11-0.59); MONO% 7.3 % (1.7-9.3); MPV 9.5 FL (7.4-10.4); NEUT# 27.31 X1000 (1.4-6.5); NEUT% 88.1 % (42.2-75.2); PLT 230 X1000 (130-400); RBC 4.76 XMIL (4.7-6.1)
[2019-07-27] MEDS: NICODERM PATCH TD SCH (10:02)
[2019-07-27] MEDS: NORVASC PO SCH ×2 (10:02→20:32)
[2019-07-27] MEDS: VANCOMYCIN 2,000 MG in NS 500 ML IV SCH ×3 (10:07→22:30)
--- NOTE | 2019-07-27 10:07 | PROGRESS NOTE ---
DATE: 07/27/2019 Mr. Lopez was seen by Dr. Small yesterday, and his urine culture and blood cultures are pending. He is being taken to surgery today for possible drainage and consideration for orchiectomy. His vital signs are stable. His temperature is 99.8 degrees, and he is on IV Levaquin and IV vancomycin. -1 cc: Kevin Hernandez MD
[2019-07-27] MEDS: ZOSYN 3.375 GM in NS 50 ML IV SCH ×3 (10:23→21:37)
[2019-07-27 10:24] LABS: LYMPHS 4 % (21-51); MONO 2 % (1-9); SEGS 94 % (42-75)
[2019-07-27 10:32] LABS: AGAP 15; BUN 6 mg/dL (8-22); CALCIUM 9.4 mg/dL (8.8-10.2); CHLORIDE 94 mmol/L (98-107); COSMO 263; CREATININE 0.7 mg/dL (0.7-1.2); ESTIMATED GFR > 60; GLUCOSE 120 mg/dL (70-104); POTASSIUM 3.6 mmol/L (3.5-5.1); SODIUM 132 mmol/L (136-145); TCO2 23 mmol/L (25-35)
--- NOTE | 2019-07-27 14:38 | OPERATIVE NOTE ---
PROCEDURE DATE: 07/27/2019 PREOPERATIVE DIAGNOSES: 1. Left epididymitis. 2. Scrotal abscess. POSTOPERATIVE DIAGNOSES: 1. Left epididymitis. 2. Scrotal abscess. PROCEDURE PERFORMED: Incision and drainage of scrotal abscess. SURGEON: Reji Small MD. OUTDOOR PURSUITS INSTRUCTOR: None. COMPLICATIONS: None. BLOOD LOSS: 20 mL. DRAINS: David drain. SPECIMENS REMOVED: Scrotal cultures x2. INDICATION FOR PROCEDURE: Mr. Lopez is a 38-year-old who presented to the emergency room complaining of scrotal pain and swelling. The patient was treated with antibiotics and then was discharged. However, he had worsening pain and re-presented yesterday morning. The patient had an ultrasound which showed good vascular flow to both testicles as well as epididymal inflammation and irritation with a small left hydrocele that was loculated. Also had a CT scan which showed no evidence of any hernia, with small periaortic lymphadenopathy and evidence of epididymitis with a fluid collection around the testicle. The patient was given vancomycin and Zosyn. His symptoms improved moderately. He was admitted to the hospital for observation. The patient has had significant pain since then and had some worsening swelling of the scrotum afterwards. The patient was examined this morning with warmth to the scrotum as well as significant pain. The patient had low-grade temperatures overnight. Concern arose that the patient had an abscess that needed drainage. I talked with him regarding risks including bleeding, infection, need to remove a large portion of the scrotum or testicle. No obvious crepitus was seen on exam. Low concern for Joe's but with the presentation of being febrile and not responding to antibiotics, I recommended drainage of the wound itself. DESCRIPTION OF PROCEDURE: After informed consent was obtained, the patient was brought to the operating room and placed on the table in the supine position. The patient underwent LMA placement and had received antibiotics on the floor. The patient was then prepped and draped in the usual sterile fashion. A preoperative time-out was performed with all parties in agreement. A scrotal exam was then performed which showed a small amount of fluid around the right testicle with no evidence of any warmth. The left testicle was quite inflamed and firm. No palpable fluctuance was felt within the scrotum itself. No crepitus but there was erythema and warmth of the scrotal wall, at which point an incision was marked over the median raphe. Then, using a scalpel, this was excised. The scrotal wall was quite thickened and hyperemic. A small amount of bleeding was seen through each layer with a large rind around the left testicle itself. Ultimately, I was able to excise through the rind and down to the left testicle. The testicle appeared to be well- vascularized. It was inflamed and stuck posteriorly. Once we got through to around the testicle itself, there was a small amount of fluid that returned and this was sent as scrotal cultures. A small amount of purulence was seen but minimal fluid was drained. The wound was then vigorously irrigated with irrigant and all the loculations were removed, both anteriorly and posteriorly. The testicle and epididymis was adherent posteriorly, but I was able to break up the posterior loculations. The wound was again vigorously irrigated with 300 mL of the irrigant. The testicle remained well- vascularized. I could feel the epididymis was inflamed but no obvious appendix testes or appendix epididymis was visualized. Following this, a decision was made to place a [place] drain, which was positioned in the dependent portion of the left scrotum. Using a clamp, this was passed through and was exited through the skin. The [place] was grasped and brought into the incision itself, and placed around the testicle. This was sutured to the skin with a nylon and allowed to drain. The wound was then irrigated once more. Then, using interrupted Vicryl, the rind and subcutaneous tissues were loosely approximated and then using horizontal mattress sutures, using a chromic 3-0, the skin edges were brought together with several loosely interrupted sutures to allow for any drainage through our incision. At this point, the patient was then awoken and was taken to recovery in stable condition. The patient will have a dressing with gauze as well as scrotal support, and will transport back to the floor and continue with antibiotics and monitoring inpatient. cc: MD Kevin Bob MD [facility]
[2019-07-27] MEDS: MORPHINE IV PRN (17:46)
[2019-07-27] MEDS: PERIDEX MT SCH (20:31)
[2019-07-27] MEDS: VALIUM PO SCH (20:31)
[2019-07-28] MEDS: MORPHINE IV PRN ×3 (01:03→15:29)
[2019-07-28] MEDS: ZOSYN 3.375 GM in NS 50 ML IV SCH ×3 (04:25→15:30)
[2019-07-28 06:56] LABS: HEMATOCRIT 43.4 % (42.0-52.0); MCH 30.9 PG (27-31); MCHC 32.3 g/dL (33-37); MCV 95.8 FL (81-99); MPV 9.9 FL (7.4-10.4); RBC 4.53 XMIL (4.7-6.1); RDW 11.8 % (11.5-14.5); WBC 32.36 X1000 (4.8-10.8)
[2019-07-28 07:22] LABS: AGAP 13; BUN 7 mg/dL (8-22); CALCIUM 9.4 mg/dL (8.8-10.2); CHLORIDE 98 mmol/L (98-107); COSMO 273; CREATININE 0.7 mg/dL (0.7-1.2); ESTIMATED GFR > 60; GLUCOSE 118 mg/dL (70-104); POTASSIUM 3.6 mmol/L (3.5-5.1); SODIUM 137 mmol/L (136-145); TCO2 26 mmol/L (25-35)
[2019-07-28] MEDS: VANCOMYCIN 2,000 MG in NS 500 ML IV SCH (09:01)
[2019-07-28] MEDS: NORCO-10 PO SCH ×2 (09:01→16:21)
[2019-07-28] MEDS: NICODERM PATCH TD SCH (09:02)
[2019-07-28] MEDS: PERIDEX MT SCH (09:02)
[2019-07-28] MEDS: NORVASC PO SCH (09:03)
--- NOTE | 2019-07-28 12:53 | PROGRESS NOTE ---
DATE: 07/28/2019 SUBJECTIVE: Postoperative day 1 from incision and drainage of scrotal abscess. The patient states he feels better. He denies significant pain. He remains afebrile since his procedure yesterday. States his pain is much better controlled. He has had a small amount of drainage from the [place] drain but feels that his scrotal swelling has improved significantly. PHYSICAL EXAMINATION: Vital Signs: Temperature 98 degrees, heart rate 86, blood pressure 137/71, oxygen saturation 95% on room air. General: No acute distress, resting comfortably in bed. Alert and oriented x3. Respiratory: Good respiratory effort without audible wheezing or rales. Abdomen: Soft, nontender, nondistended. Genitourinary: No suprapubic tenderness. Urethral catheter in place draining clear yellow urine. The patient has indurated left scrotum with no palpable fluctuance, crepitus, erythema, or warmth. The patient's exam has improved since yesterday. I can feel no palpable fluctuance within the scrotum. The David drain is seen extruding in the lower portion of the scrotal wall draining a small amount of serous fluid. Midline incision with a small amount of drainage with interrupted sutures. No erythema. LABORATORY DATA: White blood cell count 32.4, hemoglobin 14, hematocrit 43.4, platelets 249,000. Sodium 137, potassium 3.6, chloride 98, bicarb 26, BUN 7, creatinine 0.7, glucose 118. Gram stain showed 2+ white blood cells, 1+ gram-negative rods and 1+ gram- positive cocci. Urine and blood cultures are negative. ASSESSMENT AND PLAN: Mr. Lopez is a 38-year-old who is postoperative day 1 from incision and drainage of scrotal abscess. Only a small amount of fluid was removed yesterday. The patient feels that his pain is significantly improved over the past 24 hours. He denies any fevers. His white blood cell count continues to be elevated with a leukocytosis 32, it was 31 yesterday. The patient has been on Zosyn and vancomycin. Gram stain was sent which showed gram-positive cocci and gram-negative rods. We will continue to monitor wound culture, blood cultures and urine culture. Would plan to remove his catheter today. Would continue on IV antibiotics for the time being. If white blood cell count can go down, would consider transition to oral antibiotics but we will keep on IV antibiotics as he improves. We will continue to monitor from a urologic standpoint. Would keep drain in for at least 7 to 10 days to ensure drainage. The patient will continue to have induration and swelling of the scrotum for several weeks afterwards due to the severe nature of his epididymitis. We will continue to monitor. Please call with questions or concerns. cc: MD Kevin Bob MD [facility]
[2019-07-28 15:20] VITALS: BP 130/87
--- NOTE | 2019-07-28 17:34 | PROGRESS NOTE ---
DATE: 07/28/2019 SUBJECTIVE: Mr. Lopez had surgery done yesterday. He had a scrotal abscess. He is on IV piperacillin as well as vancomycin, which is helping him some. The white count is still up and it was 32,000 this morning. We will repeat it again. He is also being seen by Dr. Small. He has severe epididymoorchitis on the left side with hydrocele and scrotal abscess. cc: Kevin Hernandez MD
--- NOTE | 2019-08-03 14:46 | DISCHARGE SUMMARY ---
ADMISSION DATE: 07/26/2019 DISCHARGE DATE: 07/28/2019 SUBJECTIVE: The patient signed out against medical advice on 07/28/2019. Mr. Lopez, who is a 39-year-old white gentleman, was admitted with a diagnosis of epididymoorchitis in the left testicle with some hydrocele. CT scan of the abdomen revealed degenerative changes in the lumbar spine with previous laminectomy and fusion L5-S1, possible left periaortic adenopathy due to left epididymitis, possibility of scrotal empyema could not be excluded. LABORATORY DATA: In the hospital, CBC revealed white count of 28.48, done on 07/28, it was 32.36. Hemoglobin went down from 17.3 to 14. INR was 1.03. Chemistry profile was negative. BUN and creatinine were normal. His magnesium was somewhat low 1.4. Total bilirubin was 1.59, AST and ALT was slightly elevated. Alkaline phosphatase was 203. C-reactive protein was 219. Urinalysis revealed too numerous WBCs, large leukocytes, negative for bacteria, moderate blood in the urine. Toxicology was positive for opiates, oxycodone, amphetamines, and benzodiazepines. COURSE IN THE HOSPITAL: He was seen by Dr. Small starting from the emergency room and was started on IV vancomycin. Later on, we added Levaquin pain and he was taken for surgery on 07/27/2009 and scrotal empyema. There was some was pus removed from the scrotal sac on the left side by Dr. Small. He continued to do well. However, next day, on account of family situation, he signed out AMA and according to him he was given Septra DS or Bactrim DS by Dr. Small and he will follow him in the office in a few days. 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 We will follow him up in the office at a later date. cc: Kevin Hernandez MD
== END 2019-07-28 19:30 | disposition left against medical advice (07) | DRG 717 ==
LOC: SUPCPDRO → ED 07:02 → EDIPHOLD 10:46 → 4N 12:33
PROVIDERS: ADMIT Internal Medicine; ATTEND Internal Medicine

== ENCOUNTER 2019-09-04 18:40 | Inpatient (IN) ==
[2019-09-04] MEDS ORDERED: TORADOL IV ONE (19:57)
[2019-09-04 20:47] LABS: BASO# 0.05 X1000 (0.0-0.2); BASO% 0.4 % (0.0-0.8); EOS% 0.8 % (0.0-10.0); HEMATOCRIT 48.3 % (42.0-52.0); HEMOGLOBIN 15.8 g/dL (14.0-18.0); IMM GRAN# 0.02 X1000 (0.0-0.04); IMM GRAN% 0.2 % (0.0-0.5); LYMPH# 2.45 X1000 (1.2-3.4); LYMPH% 20.1 % (20.5-51.1); MCH 29.8 PG (27-31); MCHC 32.7 g/dL (33-37); MCV 91.1 FL (81-99); MONO# 0.58 X1000 (0.11-0.59); MONO% 4.8 % (1.7-9.3); MPV 9.9 FL (7.4-10.4); NEUT# 8.96 X1000 (1.4-6.5); NEUT% 73.7 % (42.2-75.2); PLT 213 X1000 (130-400); RDW 13.1 % (11.5-14.5); WBC 12.16 X1000 (4.8-10.8)
[2019-09-04] MEDS ORDERED: DILAUDID IV ONE ×2 (20:55→23:59)
[2019-09-04] MEDS ORDERED: ZOFRAN IV ONE (20:55)
[2019-09-04 21:16] LABS: AGAP 13; ALB/GLOB RATIO 1.3; ALBUMIN 3.9 g/dL (3.5-5.0); ALKALINE PHOSPHATASE 104 U/L (32-122); BUN 8 mg/dL (8-22); CALCIUM 9.1 mg/dL (8.8-10.2); CHLORIDE 99 mmol/L (98-107); COSMO 272; CREATININE 0.8 mg/dL (0.7-1.2); ESTIMATED GFR > 60; GLUCOSE 97 mg/dL (70-104); GOT 20 U/L (10-34); GPT 21 U/L (10-44); POTASSIUM 3.8 mmol/L (3.5-5.1); SODIUM 137 mmol/L (136-145); TCO2 25 mmol/L (25-35); TOTAL BILIRUBIN 0.41 mg/dL (0.20-1.00); TOTAL PROTEIN 6.9 g/dL (6.3-8.3)
--- NOTE | 2019-09-04 23:06 | PROVIDER DOCUMENTATION ---
This chart was entered by Betina Roldan Scribe, acting as scribe for Tru Ruano MD. HPI-Male Problem - General Chief Complaint: Post Op Complaint Stated Complaint: MALE Time Seen by Provider: 09/04/19 19:31 Source: patient, old records Allergies/Adverse Reactions: Patient Allergies Allergy/AdvReac Type Severity Reaction Status Date / Time No Known Allergies Allergy Verified 07/26/19 07:24 Home Medications: Home Medication List Medication Instructions Recorded Confirmed Last Taken Type Amlodipine [Norvasc] 5 mg PO BID 04/10/19 07/26/19 07/25/19 History Diazepam 10 mg PO QHS 07/26/19 07/26/19 07/25/19 History Hydrocodone/Acetaminophen [[place] 1 ea PO TID 07/26/19 07/26/19 07/25/19 History 10-325 Tablet] - History of Present Illness-Male Nature of Presenting Problem: pt is a 39 yowm c/o left scrotal pain. pt had left inguinal hernia repair 08/03 w/Dr. Small, has been on bactrim. pt has left scrotal pain and d/c. pt is currently incarcerated. pt was advised to follow up w/Dr. Small. old record shows pt had scrotal abscess I&D, epididymitis. wound has dehisced. Location of Complaint: reports: scrotal (left) Radiation: reports: none Severity in ED: reports: mild Timing: reports: still present Context/Activities at Onset: reports: none Urinary Symptoms: reports: no symptoms Associated Symptoms: reports: pain/swelling in testicle (left) Associated Symptoms: reports: denies symptoms Recently seen or treated by another doctor?: Yes (08-03 inguinal hernia repair ) Review of Systems - Adult - REVIEW OF SYSTEMS - ADULT Constitutional: reports: no symptoms reported. denies: fever, fatique, night sweats Eyes: reports: no symptoms reported Ears, Nose, Mouth & Throat: reports: no symptoms reported Cardiovascular: reports: no symptoms reported Respiratory: reports: no symptoms reported Gastrointestinal: reports: no symptoms reported Genitourinary: reports: see HPI, discharge, other (left scrotal pain). denies: dysuria, hematuria, hesitency Musculoskeletal: reports: no symptoms reported Integumentary: reports: no symptoms reported Neurological: reports: no symptoms reported Psychiatric: reports: no symptoms reported Endocrine: reports: no symptoms reported Hematologic/Lymphatic: reports: no symptoms reported Allergic/Immunologic: reports: no symptoms reported All Other Systems: Reviewed and Negative Past History - Adult - PAST MEDICAL HISTORY-ADULT Review of Records: reports: Nursing Assessment Review, Medications Reviewed, Social history reviewed & non-contributory. Major Childhood Illnesses: reports: denies history Cardiovascular: reports: denies history, HTN Respiratory: reports: denies history, asthma Gastrointestinal: reports: denies history Obstetrical/Gynecological: reports: denies history Genitourinary: reports: kidney disease Musculoskeletal: reports: denies history Neurological: reports: denies history Psychiatric: reports: anxiety Endocrine/Immune: reports: denies history Other Conditions: reports: denies history - PRIOR SURGERIES/PROCEDURES Surgical/Procedure History: reports: reviewed, not pertinent, back/neck (lumbar fusion) - IMMUNIZATION STATUS Childhood Immunizations: See Nurse Assessment Flu Vaccine: See Nurse Assessment - FAMILY HISTORY Family History: reviewed, not pertinent - SOCIAL HISTORY Smoking: cigarettes, greater than 1 pack/day Provider spent 3-5 mins advising pt. on dangers of tobacco.: Discussed manners to quit use, and f/u contacts for add'l counseling. Substance Use: alcohol Alcohol Use Frequency: occasionally Physical Exam-General - PHYSICAL EXAM-ADULT Initial Vital Signs Reviewed: Yes - CONSTITUTIONAL General Appearance: alert, no apparent distress. negative: cachetic, obtunded, combative - EYES Eyes: PERRL/EOMI - HEAD, EARS, NOSE, MOUTH & THROAT HENMT: normocephalic/atraumatic, moist mucous membranes, normal ENT inspection - NECK Neck: non-tender, full range of motion, supple, normal inspection - RESPIRATORY Respiratory: chest non-tender, lungs clear, normal breath sounds - CARDIOVASCULAR Cardiovascular: normal peripheral pulses, regular rate, rhythm - GASTROINTESTINAL (ABDOMEN) Abdominal Exam: normal bowel sounds, non tender, soft - GENITOURINARY Male Genitalia: other (pt left scrotum is granulating. infection is resolving. wound is dehisced. Severe left testicular pain.). negative: scrotal swelling Rectal Exam: deferred - MUSCULOSKELETAL Back Exam: normal inspection Extremity: normal range of motion, non-tender, normal inspection - SKIN Integumentary: normal color, normal turgor, warm/dry - NEUROLOGIC Neurologic: grossly normal, no motor/sensory deficits - PSYCHIATRIC Psych/Mental Status: normal mood/affect, normal thought content, normal thought process, oriented x 3 Progress - PLAN OF CARE/RESULTS Progress/Plan/Lab Results: Vital Signs - 8 hr 09/04/19 18:45 09/04/19 20:28 09/04/19 20:32 Temperature 97.5 F L Pulse Rate 77 Respiratory Rate 18 Blood Pressure 166/104 159/95 153/77 O2 Sat by Pulse Oximetry 98 99 100 Laboratory Results - last 24 hr 09/04/19 09/04/19 20:25 20:25 WBC 12.16 H RBC 5.30 Hgb 15.8 Hct 48.3 MCV 91.1 MCH 29.8 MCHC 32.7 L RDW Std Deviation 13.1 Plt Count 213 MPV 9.9 Immature Gran % (Auto) 0.2 Neut % (Auto) 73.7 Lymph % (Auto) 20.1 L Craig % (Auto) 4.8 Eos % (Auto) 0.8 Baso % (Auto) 0.4 Immature Gran # (Auto) 0.02 Neut # (Auto) 8.96 H Lymph # (Auto) 2.45 Craig # (Auto) 0.58 Eos # (Auto) 0.10 Baso # (Auto) 0.05 Sodium 137 Potassium 3.8 Chloride 99 Carbon Dioxide 25 Anion Gap 13 BUN 8 Creatinine 0.8 Estimated GFR/1.73 m2 > 60 BUN/Creatinine Ratio 10 Glucose 97 Calculated Osmolality 272 Calcium 9.1 Total Bilirubin 0.41 AST 20 ALT 21 Alkaline Phosphatase 104 Total Protein 6.9 Albumin 3.9 Globulin 3.0 Albumin/Globulin Ratio 1.3 Orders Category Date Time Status US SCROTUM [US] Stat Exams 09/04/19 19:56 Taken CBC WITH ELECTRONIC DIFF [HEME] Stat Lab 09/04/19 20:25 Completed COMPREHENSIVE METABOLIC PANEL [CHEM] Stat Lab 09/04/19 20:25 Completed URINALYSIS W/POSS RFLX CULT [URINALYSIS] Stat Lab 09/04/19 20:28 Ordered Hydromorphone [Dilaudid] Med 09/04/19 20:55 Discontinued 1 mg IV NOW ONE Ketorolac [Toradol] Med 09/04/19 19:57 Discontinued 30 mg IV NOW ONE Ondansetron [Zofran] Med 09/04/19 20:55 Discontinued 4 mg IV NOW ONE Result Diagrams: 09/04/19 20:25 09/04/19 20:25 - EKG 1 Rate: 67 Rhythm: NSR w/SA QRS: RBB (incomplete) - ULTRASOUND (By Radiology) 1 US Study: Scrotum Impression: Abnormal, Need Further Study, See EMR Report (Impression: 1. left- sided nodular mass w/internal flow present along the incision site measuring 1.5x1.6x1.6cm/ 2. marked ill-defined and heterogenous left testicle. cannot exclude testicular infarct or rupture.) - CONSULTS/PCP/HOSPITALIST Notification #1 *Consult/PCP/Hospitalist*: Dr. Fraga Time Discussed: 22:52 Consult Disposition: Admit #2 Consult: Dr. Calderon Time Discussed: 23:02 Consult Disposition: Admit Departure - Departure Date of Disposition Decision: 09/04/19 Time of Disposition Decision: 23:04 DIAGNOSIS: Testicular abnormality, Post op infection, Wound dehiscence Disposition: ADMITTED INPATIENT 09 Certified Medical Emergency: Emergent Condition: Fair Referrals and Follow-Ups: None,PCP [Primary Care Provider] - - Critical Care Note This patient required my direct & personal management of CC.: No Attestation - Physician/ BIRGIT Attestation Patient care was provided by Advanced Practice Provider:: No The physician spent face to face time with patient:: Yes Advanced Practice Provider documentation review:: Supervising physician onsite and consulted in the evaluation and care of this patient. The physician did have a face to face encounter with the patient. This chart was documented by the indicated scribe, (Betina Roldan Scribe) and accurately reflects the services I performed and decisions made by me, Tru Ruano MD, as attested by the provider's signature.
[2019-09-04] MEDS ORDERED: VALIUM PO ONE (23:58)
[2019-09-04] MEDS ORDERED: NICODERM PATCH TD ONE (23:58)
[2019-09-05] MEDS ORDERED: ZOFRAN IV PRN (01:19)
[2019-09-05] MEDS ORDERED: VANCOMYCIN IV PER PHARMACY MISC SCH (01:19)
[2019-09-05] MEDS ORDERED: VALIUM PO ONE ×2 (01:30→23:45)
[2019-09-05] MEDS: ZOSYN 3.375 GM in NS 50 ML IV SCH ×4 (01:42→22:49)
[2019-09-05] MEDS: NS 1,000 ML IV SCH (01:42)
--- NOTE | 2019-09-05 02:57 | HISTORY AND PHYSICAL ---
PRIMARY CARE PROVIDER: Kevin Hernandez MD. UROLOGIST: Dr. Small. CHIEF COMPLAINT: Left scrotal pain. HISTORY OF PRESENT ILLNESS: Mr. Lopez is a 39-year-old male who is currently in the custody of [facility]. He reports he was incarcerated today. He had undergone an I and D of a scrotal abscess on the left by Dr. Small on . He reported he was instructed to wear tighty whities ease. He has noticed some yellowish blood-tinged drainage since that time, but reports it is not draining as much as it had previously. He does report an increase in pain to that left testicle. He reports no fever, no chills, no headache, no chest pain. No shortness of breath, no nausea, vomiting, or diarrhea. He reports he has actually not had a bowel movement in the last couple of days, that is odd for him. He is normally regular. He did report some palpitations when his blood pressure was elevated earlier. He did have a scrotal ultrasound that was performed that showed a left-sided nodular mass with internal flow present along the incision site with an ill-defined and heterogenous left testicle, could not exclude testicular infarct or rupture. ED spoke with Dr. Fraga, he recommended admission and I believe will be seen by Dr. Small in the a.m. Testicular exam was done by Dr. Calderon, it revealed about a 1 x 2 cm hard nodular mass on the inferior part of the left testicle, with some necrotic tissue. His right testicle was firm and smooth. There was no growth seen on his cultures that were taken back on 07/27/2019. We will go ahead and initiate him on pain medicine as well as vancomycin and Zosyn, and go ahead and get a CT scan of the abdomen and pelvis. I did not appreciate any inguinal lymph nodes. PAST MEDICAL HISTORY: Hypertension, ADD, chronic degenerative disk disease status post lumbar fusion, and recent left epididymitis with scrotal abscess and I and D by Dr. Small. PAST SURGICAL HISTORY: Lumbar fusion, I and D to the left testicle. SOCIAL HISTORY: He was incarcerated today. He reports he does smoke 1 pack of cigarettes per day, has done so for 22 years. Socially he drinks. No recent marijuana or illicit drugs. He is on chronic narcotic medication with prescriptions. ALLERGIES: No known drug allergies. MEDICATIONS: Home medications are being compiled off his previous discharge. We will continue him on his Norvasc, diazepam, Lexapro. PHYSICAL EXAMINATION: VITAL SIGNS: Temperature is 97.5 degrees, heart rate 77, respirations 18, blood pressure is 153/77, O2 saturation is 100% on room air. GENERAL: Mr. Lopez is a pleasant 39-year-old male who is currently chained to the bed, incarcerated with a guard at the bedside in no acute distress. He is having some left testicular pain. HEENT: Atraumatic, normocephalic. PERRL. NECK: Supple. Trachea midline. CARDIOVASCULAR: S1, S2 appreciated. No murmurs, gallops or rubs noted. RESPIRATORY: Lung sounds clear bilaterally. GI: Soft, nontender, nondistended. Positive bowel sounds in 4 quadrants. LOWER EXTREMITIES: Negative for edema. : Physical examination was done by Dr. Calderon. Please see HPI. NEUROLOGIC: No focal deficits noted. DIAGNOSTIC DATA: Scrotal ultrasound on ED report showed a left-sided nodular mass with internal flow present along the incision site measuring 1.5 x 1.6 x 1.6 cm. Marked ill- defined and heterogeneous left testicle could not exclude testicular infarct or rupture. LABORATORY DATA: White count 12, hemoglobin and hematocrit 15 and 48, platelet count is 213,000. Sodium 137, potassium 3.8, BUN 8, creatinine 0.8, blood glucose is 97. ASSESSMENT AND PLAN: 1. Left testicular hard nodular mass with some necrotic tissue. Dr. Fraga has been consulted. The patient will be admitted and will follow up with Dr. Small in the a.m. We will make him NPO after midnight. Start IV fluids. 2. Question of postoperative infection with wound dehiscence. We will initiate him on vancomycin and Zosyn. His cultures from 08/27/2019 did not grow out anything. We are checking a CT of the abdomen and pelvis. He did not have any swollen lymph nodes in his inguinal area. 3. Panic attacks. We will continue his home diazepam. 4. ADHD. 5. Hypertension continue Norvasc. 6. Further recommendations to follow physician evaluation, laboratory and diagnostic data. Dictated by BLAINE Del Angel for MD Vincent Green#: [id number] cc: MD Kevin Green MD Patrick Guthrie, MD Independent exam done by me and noted as above. Pt may have a granuloma or less likely, a neoplastic process in the L scrotum attached to his L testis. No inguinal LN noted and above plan was devised by me. [facility]
[2019-09-05] MEDS: VANCOMYCIN 2,000 MG in NS 500 ML IV SCH ×2 (04:49→17:06)
[2019-09-05 07:37] LABS: BASO# 0.07 X1000 (0.0-0.2); BASO% 0.9 % (0.0-0.8); EOS# 0.25 X1000 (0.0-0.7); EOS% 3.4 % (0.0-10.0); HEMATOCRIT 46.4 % (42.0-52.0); HEMOGLOBIN 15.1 g/dL (14.0-18.0); LYMPH# 3.61 X1000 (1.2-3.4); LYMPH% 48.7 % (20.5-51.1); MCH 30.1 PG (27-31); MCHC 32.5 g/dL (33-37); MCV 92.4 FL (81-99); MONO# 0.46 X1000 (0.11-0.59); MONO% 6.2 % (1.7-9.3); MPV 9.8 FL (7.4-10.4); NEUT# 3.02 X1000 (1.4-6.5); NEUT% 40.8 % (42.2-75.2); PLT 188 X1000 (130-400); RBC 5.02 XMIL (4.7-6.1); RDW 13.2 % (11.5-14.5); WBC 7.41 X1000 (4.8-10.8)
--- NOTE | 2019-09-05 07:58 | Diag Imaging Result Doc PS360 ---
EXAM: US SCROTUM INDICATION: testicular pain TECHNIQUE: COMPARISON: 07/26/2019 FINDINGS: The right testicle is normal in echotexture with no discrete testicular cyst or mass and exhibits normal Doppler flow measuring 4.5 cm in the greatest dimension. The left testicle is markedly heterogeneous and ill-defined measuring 4.6 cm in the greatest dimension. There is some associated Doppler flow. At the incisional site on the left, there is a nonspecific hypoechoic round lesion with internal Doppler flow measuring up to 1.6 cm. Neither the right nor the left epididymides are identified. There is scrotal skin thickening on the left. IMPRESSION: 1.Markedly heterogeneous left testicle. Testicular infarct or rupture should be considered. 2.Nonspecific round mass underlying the incisional site on the left measuring up to 1.6 cm. Electronically signed by Sav Roldan 09/05/2019 7:55 AM
[2019-09-05 08:12] LABS: AGAP 11; ALB/GLOB RATIO 1.3; ALBUMIN 3.4 g/dL (3.5-5.0); ALKALINE PHOSPHATASE 89 U/L (32-122); BUN 8 mg/dL (8-22); CALCIUM 8.6 mg/dL (8.8-10.2); CHLORIDE 101 mmol/L (98-107); COSMO 272; CREATININE 0.7 mg/dL (0.7-1.2); ESTIMATED GFR > 60; GLUCOSE 91 mg/dL (70-104); GOT 19 U/L (10-34); GPT 17 U/L (10-44); POTASSIUM 3.3 mmol/L (3.5-5.1); SODIUM 137 mmol/L (136-145); TCO2 25 mmol/L (25-35); TOTAL BILIRUBIN 0.42 mg/dL (0.20-1.00); TOTAL PROTEIN 6.1 g/dL (6.3-8.3)
[2019-09-05] MEDS: NICODERM PATCH TD SCH (08:36)
[2019-09-05] MEDS: LEXAPRO PO SCH (08:36)
[2019-09-05] MEDS: NORVASC PO SCH ×2 (08:36→21:01)
[2019-09-05] MEDS: DILAUDID IV PRN ×3 (10:37→21:01)
--- NOTE | 2019-09-05 13:40 | PROGRESS NOTE ---
DATE: 09/05/2019 Mr. Lopez is admitted with left-sided scrotal swelling and epididymoorchitis. He had some bleeding yesterday. He had scrotal abscess and was admitted by Dr. Small the last month. He was admitted through the emergency room last night. He has been on vancomycin and piperacillin. LABORATORY DATA: At present reveals leukocytosis, white count was 12.16 last night and it came down to 7.41 this morning. Electrolytes are normal, BUN and creatinine are normal. Potassium is 3.3. His scrotal ultrasound revealed markedly heterogeneous left testicle with testicular infarction or rupture should be considered and nonspecific round mass underlying the incisional site on the left measuring up to 1.6 cm was noted. The patient has a consultation with Dr. Small. Will continue to watch him until then. cc: Kevin Hernandez MD
[2019-09-05 15:16] LABS: URINE SOURCE CLEAN CATCH
[2019-09-05 15:20] LABS: BILIRUBIN URINE NEGATIVE (NEGATIVE); BLOOD URINE NEGATIVE (NEGATIVE); COLOR YELLOW; GLUCOSE URINE NEGATIVE (NEGATIVE); KETONE URINE TRACE mg/dL (NEGATIVE); LEUKOCYTES URINE NEGATIVE (NEGATIVE); NITRITE URINE NEGATIVE (NEGATIVE); SP GRAVITY URINE 1.022; TURBIDITY URINE CLEAR (CLEAR); UROBILINOGEN URINE NORMAL (NORMAL)
[2019-09-05 15:30] LABS: PROTEIN URINE NEGATIVE (NEGATIVE)
[2019-09-05 15:31] LABS: UR EPITHELIAL CELLS <10 /HPF (<10); URINE BACTERIA NEGATIVE /HPF; URINE RBC <10 /HPF (<10); URINE WBC <10 /HPF (<10)
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
[2019-09-05] MEDS: VALIUM PO SCH (21:01)
[2019-09-06] MEDS: NS 1,000 ML IV SCH ×2 (00:11→17:40)
[2019-09-06] MEDS: VANCOMYCIN 2,000 MG in NS 500 ML IV SCH ×2 (03:09→17:39)
[2019-09-06] MEDS: ZOSYN 3.375 GM in NS 50 ML IV SCH ×4 (06:13→22:47)
[2019-09-06] MEDS: DILAUDID IV PRN ×4 (07:43→21:59)
[2019-09-06] MEDS: LEXAPRO PO SCH (09:40)
[2019-09-06] MEDS: NORVASC PO SCH ×2 (09:40→20:37)
[2019-09-06] MEDS: NICODERM PATCH TD SCH (09:40)
--- NOTE | 2019-09-06 09:46 | PROGRESS NOTE ---
DATE: 09/06/2019 SUBJECTIVE: Mr. Lopez is in about the same general condition . OBJECTIVE: He is afebrile. Blood pressure is normal today. Systolic is 144. He had urinalysis that was negative. He was seen by Dr. Fraga yesterday and Dr. Small is to see him today. He has minimal gangrenous changes in the scrotum, and the left testicle is slightly swollen, but there is a wound which is really not draining much. The culture studies have been done and he has been on antibiotics namely IV piperacillin and vancomycin. Overall condition is unchanged. He still continues to have a lot of pain. PLAN: The course and management will depend on the suggestion from Dr. Small about further intervention. cc: Kevin Hernandez MD
--- NOTE | 2019-09-06 10:04 | PROGRESS NOTE ---
DATE: 09/06/2019 SUBJECTIVE: No acute events overnight. The patient states his pain is well controlled at this time. He denies any nausea or vomiting. Patient remains afebrile. The patient has been voiding frequently and states he has a strong urinary stream. OBJECTIVE: Vital signs: Temperature 97.7 degrees, heart rate 73, blood pressure 144/86, oxygen saturation 99% on room. General: No acute distress. Resting comfortably in bed. Alert and oriented x3. Respiratory: Good respiratory effort without audible wheezing or rales. Abdomen: Soft, nontender, nondistended. : Normal phallus with orthotopic meatus. No suprapubic tenderness. Scrotal exam shows midline incision; it seems to be relatively well healed. However left lateral to this, there is approximate 2 x 2 cm unhealthy tissue that has what appears to be some wet gangrene present. The testicle is palpated posterior to this and nontender to palpation. Both epididymides are palpated and nontender on exam. Right testicle appears to be normal and uninvolved. There appeared to be almost an island of normal tissue surrounded by abnormal tissue. No obvious crepitus or fluctuance seen. No drainage seen from the wound itself. This area is nontender to palpation. LABS: White blood cell count yesterday was 7.4, hemoglobin 15.1, hematocrit 46.4, platelets 188. Sodium 137, potassium 3.3, chloride 101, bicarbonate 25. BUN 8, creatinine 0.7, glucose 91. ASSESSMENT AND PLAN: Mr. Lopez is a 39-year-old who underwent incision and debridement of scrotal abscess approximately a month ago. He has been followed in the office. However, when he was seen last week, this wound was not healing as well as I would like it to be and did have a slightly abnormal appearance, likely due to chronic inflammation from the testicle itself and the significant epididymal orchitis that the patient previously had. The patient was stopped by the police and was taken to [facility], and his scrotum was evaluated at that time and he was transferred to the hospital for evaluation. A scrotal ultrasound was performed at that time which showed normal blood supply to both testicles. However, the left testicle is quite heterogenic, likely related to the significant episode of epididymal orchitis the patient had. Overlying this, there appeared to be a solid area of the skin which appears to be on physical exam just inflammation. However, it does appear to have some drainage and possibly wet gangrene present. The wound appears to be slightly better today than yesterday, but in talking with him I recommended anesthetic evaluation and debridement of this area to try to remove any underlying inflammatory tissue to assist in healing. I would continue with antibiotics at this time. We will plan to make him nothing by mouth at midnight in preparation for procedure tomorrow. I told him that his testicle is heterogenetic; however, I think this is related to the acute nature of his infection and that it may take several months for it to improve. If the patient continues to have pain and symptoms, would have to consider an orchiectomy to remove the testicle as well. Would evaluate the testicle tomorrow with him asleep. The patient currently has minimal to no pain on exam, much improved over prior evaluations from a pain standpoint. We will continue to monitor from a urologic standpoint. Please call with questions or concerns. cc: MD Kevin Bob MD MTDD
[2019-09-06] MEDS: VALIUM PO SCH (20:37)
[2019-09-07] MEDS: VANCOMYCIN 2,000 MG in NS 500 ML IV SCH ×2 (03:22→17:15)
[2019-09-07] MEDS: ZOSYN 3.375 GM in NS 50 ML IV SCH ×4 (05:51→22:28)
[2019-09-07] MEDS: DILAUDID IV PRN ×4 (09:06→21:41)
[2019-09-07] MEDS ORDERED: FENTANYL ONE ×2 (09:39)
[2019-09-07] MEDS ORDERED: MARCAINE 0.25% PF ONE (09:40)
[2019-09-07] MEDS ORDERED: DIPRIVAN 1% ONE (09:40)
[2019-09-07] MEDS ORDERED: XYLOCAINE-MPF 2% ONE (09:44)
[2019-09-07] MEDS ORDERED: ROBINUL ONE (09:44)
[2019-09-07] MEDS ORDERED: QUELICIN (DOSE) ONE (09:44)
[2019-09-07] MEDS ORDERED: DECADRON ONE (09:59)
[2019-09-07] MEDS ORDERED: ZOFRAN ONE (09:59)
[2019-09-07] MEDS ORDERED: LABETALOL IV PRN (12:39)
--- NOTE | 2019-09-07 14:01 | PROGRESS NOTE ---
DATE: 09/07/2019 SUBJECTIVE: Mr. Lopez is a 39-year-old white gentleman. He is admitted with an episode of left testicular pain. He has minimal drainage. He has mild epididymoorchitis, and he was seen by Dr. Small yesterday who took him to surgery today. I do not have the details of the surgery. However, the patient tells me that he did not have the orchiectomy. OBJECTIVE: His vital signs are stable. He is alert. Blood pressure is elevated. We will get him on p.r.n. medication for blood pressure if it stays up. cc: Kevin Hernandez MD
[2019-09-07] MEDS: NICODERM PATCH TD SCH (14:20)
[2019-09-07] MEDS: LEXAPRO PO SCH (14:20)
[2019-09-07] MEDS: NORVASC PO SCH ×2 (14:20→21:36)
[2019-09-07] MEDS: NS 1,000 ML IV SCH ×2 (18:39→21:42)
--- NOTE | 2019-09-07 20:54 | OPERATIVE NOTE ---
PROCEDURE DATE: 09/07/2019 PREOPERATIVE DIAGNOSES: 1. Nonhealing scrotal wound. 2. History of epididymoorchitis. POSTOPERATIVE DIAGNOSIS: 1. Nonhealing scrotal wound. 2. History of epididymoorchitis. PROCEDURE PERFORMED: 1. Scrotal exploration with debridement. 2. Repair of left testicle. 3. Primary scrotal closure. SURGEON: Reji Small MD. DRYER FEEDER: None. COMPLICATIONS: None. ESTIMATED BLOOD LOSS: 25 mL. DRAINS: None. SPECIMEN: Scrotal Debridement tissue. ANESTHESIA: LMA. INDICATIONS FOR PROCEDURE: Mr. Lopez is a 39-year-old who had presented to the hospital with significant episode of epididymoorchitis on 07/26/2019. The patient had a white blood cell count in the 30s and was having fever and induration of the testicle itself. The patient was taken to the operating room at that time for incision and drainage of scrotal abscess, which was drained and showed bacteria present, but cultures never returned with any growth. The patient had a drain placed and was observed inpatient; however, he left AMA. The patient was seen in the outpatient setting and had his drain removed and overall was improving. The patient presented last week complaining of some drainage from around the incision itself. On inspection, it was not the incision that was draining, but rather an area adjacent on the left scrotum that appeared to have some granulation tissue. I debrided this in the office and recommended surgical intervention; however, patient wanted to forego surgical intervention and try antibiotics. The patient presented to the hospital on 09/04/2019 and was admitted for possible infection. White blood cell count at that point was 12. The patient remained afebrile. His infection count improved rapidly. The patient's wound actually was better; however, I recommended surgical debridement and removal of devitalized tissue. The patient had had a scrotal ultrasound performed, which showed good blood flow to both testicles; however, his left testicle was significantly hyperechoic with an irregular appearance. This seemed to be adherent potentially to the scrotal wall, which was felt on physical exam. In talking with him, I discussed risks including but not limited tobleeding, infection, damage to surrounding structures, need for orchiectomy or inability to perform the procedure. After thorough discussion, patient elected proceed. DESCRIPTION OF PROCEDURE: Informed consent was obtained, and the patient was brought to the operating room and placed on the table in supine position. The patient received preoperative antibiotics and underwent LMA placement. The patient was then prepped and draped in usual sterile fashion. A preoperative time-out was then performed with all parties in agreement including anesthesia, surgical and nursing staff, at which point a scrotal exam was performed, which palpated a normal right testicle. The left testicle seemed to be slightly adherent to the scrotal wall underneath a lesion on the left side of the scrotum that was very indurated and appeared to be an island of tissue in the midline. This area was irrigated and washed and then was debrided and was able to remove all of the indurated tissue around the scrotal incision itself and then began to debride the actual midline area. This bled a good amount and appeared to be well vascularized. This specimen was sent for analysis. I was able to dissect around this area, and it almost appeared to be seminiferous tubules that had been extravasated. I was able to dissect around what felt like the testicle, however, could have been a small amount of rind around the testicle itself, but it dissected away and appeared to be potentially extruded seminiferous tubules. I was ultimately able to dissect around portion of the testicle, but due to the adherent nature of the left testicle, I was unable to completely dissect the testicle out itself. 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 I then was able to close this area using interrupted Prolene sutures using 5-0 closure, and this came together nicely. Once this was closed, the wound was then irrigated and then using interrupted Vicryls was able to close overlying the testicle itself and then closed in several layers and then used a 3-0 chromic on the skin in horizontal mattress fashion to close this area. These were tied loosely to allow drainage from the deeper wound. The patient then had a dressing placed with Kerlix fluffs and a scrotal support. We will continue to keep the patient on antibiotics. I think there is a good chance eventually the patient may need an orchiectomy due to the appearance of the testicle and likely the significant nature of his initial epididymoorchitis episode. We will continue to monitor. We plan to have serial scrotal ultrasounds to assess for vascularity of the testicle at a later date. We will continue to monitor from urologic standpoint. Please call with questions or concerns. cc: MD Kevin Bob MD MTDD
[2019-09-07] MEDS: VALIUM PO SCH (21:36)
[2019-09-08] MEDS: DILAUDID IV PRN ×3 (01:14→11:25)
[2019-09-08] MEDS: VANCOMYCIN 2,000 MG in NS 500 ML IV SCH (03:29)
[2019-09-08] MEDS: ZOSYN 3.375 GM in NS 50 ML IV SCH ×2 (06:02→11:20)
[2019-09-08] MEDS: NORVASC PO SCH (08:22)
[2019-09-08] MEDS: NICODERM PATCH TD SCH (08:23)
[2019-09-08] MEDS: LEXAPRO PO SCH (08:23)
--- NOTE | 2019-09-08 09:16 | PROGRESS NOTE ---
DATE: 09/08/2019 SUBJECTIVE: Postoperative day 1 from a scrotal debridement, closure of likely testicular injury, and primary closure of scrotum. The patient overall feels like he is doing well. He denies significant pain this morning. The patient has been voiding without issue. No evidence of fevers or tachycardia last night. Tolerated p.o. intake. OBJECTIVE: Vital Signs: Temperature 97.7 degrees, heart rate 71, blood pressure 152/85, oxygen saturation 95% on room air. General: No acute distress. Resting comfortably in bed. Alert and oriented x3. Respiratory: Good respiratory effort without audible wheezing or rales. Abdomen: Soft, nontender, nondistended. : Normal phallus. Bilateral testicles palpated. The left testicle is slightly adherent to the scrotal wall. The right testicle is normal and nontender. Slight tenderness to palpation of the left testicle. Midline incision is well healing. Chromic sutures are visualized with no significant drainage from the incision itself. No evidence of hematoma formation. A small amount of bruising seen in the scrotal wall. Musculoskeletal: Moving all extremities. ASSESSMENT AND PLAN: Mr. Lopez is a 39-year-old who was taken to the operating room yesterday for scrotal exploration and debridement, repair of left testicle, and primary scrotal closure, who overall is doing well. The patient had preoperative ultrasound which showed abnormal appearance of the testicle with good blood supply on the left side. On debridement, it almost seemed like tubules were being extruded. 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 The patient had a very significant epididymal orchitis episode in earlier July and still is dealing with sequela regarding that. I do not think this is continued infectious process, but did debride the skin until good bleeding edges were seen. Sent this for pathology as well as excision overlying what I think was part of the testicle itself. I was able to close the scrotal incision in multiple layers. The patient overall feels like his pain is much improved since preoperatively. We will continue to plan for close followup. I gave him pain medication and antibiotics today. We will plan to see him back in the office in 1 week for followup and would prefer a scrotal ultrasound to ensure good vascularity to the testicle. I think this is going to be a prolonged recovery for him due to the significant initial nature of his epididymal infection. We will continue to monitor. I think if the patient does well today, he could be discharged this afternoon. The patient has been monitored for his blood pressure by Dr. Hernandez. Will leave discharge plans up to him. However, from a urology standpoint, could be discharged. We will continue to monitor. Please call with questions or concerns. cc: MD Kevin Bob MD MTDD
[2019-09-08] MEDS ORDERED: FLU VACCINE IM ONE (10:18)
[2019-09-08 12:56] VITALS: BP 155/90
--- NOTE | 2019-09-08 15:39 | PROGRESS NOTE ---
DATE: 09/08/2019 OBJECTIVE: Mr. Lopez is doing better. He is still having some pain in the scrotal area on the left side. He also has back pain. His vital signs have been stable. Blood pressure was 151/[address] Small has seen him and he has decided to discharge him. He will discharge him today. I am not giving him any prescription. However, I will find out what Dr. Small gave him for pain and infection. cc: Kevin Hernandez MD
--- NOTE | 2019-09-09 11:36 | DISCHARGE SUMMARY ---
ADMISSION DATE: 09/04/2019 DISCHARGE DATE: 09/08/2019 BRIEF HISTORY OF PRESENT ILLNESS: Mr. Lopez was admitted with severe pain in the side of the scrotum with a history of mild bleeding. Mr. Lopez had severe epididymoorchitis and scrotal abscess. He was operated about 2 weeks ago and was prescribed antibiotics, was followed by Dr. Small, and he had some severe pain and drainage in the scrotal area. Ultrasound of the scrotum revealed a markedly heterogeneous left testicle. Testicular infarct was a consideration. Nonspecific round mass underlying the incisional site on the left side measuring up to 1.6 cm was noted. Right testicle was normal. LABORATORY DATA: Initially, the white count was 12.16, repeat white count was 7.41. CBC otherwise was unremarkable. Electrolytes revealed potassium was 3.8 and then 3.3, BUN and creatinine were normal. Liver enzymes were normal. Urinalysis was unremarkable. His random vancomycin level was 10.9. Microbiology was not performed. HOSPITAL COURSE: He was treated with IV Zosyn and vancomycin and was given the hydromorphone injection for pain, which he tolerated well. Later on, we decided got a Urology consult, initially seen by Dr. Fraga and then Dr. Small, who did the surgery on 09/07/2019. A scrotal exploration and debridement was performed. Repair of the left testicle and primary scrotal closure was performed by Dr. Small and later on, he watched him for 1 extra day and then decided to discharge him, which he is feeling better today, vital signs are stable and we will discharge. There may be a consideration for orchiectomy later on because of the appearance of the testicle and the significant epididymoorchitis episodes. His antibiotics were prescribed by Dr. Small and he is also going to give him some pain medication. He has Novi 10 at home. I will see him in the office in about 2 to 3 weeks. FINAL DIAGNOSES: 1. Acute epididymoorchitis. 2. Scrotal drainage status post debridement in the scrotal area on the left side. cc: Kevin Hernandez MD
== END 2019-09-08 13:21 | disposition home or self-care (01) | DRG 857 ==
LOC: ED 18:40 → SUATTDRO 18:45 → 3N 09-05 01:12
PROVIDERS: ADMIT Internal Medicine; ATTEND Internal Medicine